=== PATIENT | female | born 1935 | race Caucasian/White ===

== ENCOUNTER 2018-09-02 09:23 | Observation (INO) | payer OTHER, BC ==
[2018-09-02] MEDS ORDERED: BISACODYL 10 MG RECTAL SUPP ONE (10:20)
[2018-09-02] MEDS ORDERED: NA CHLORIDE 0.9% 1,000 ML ONE (10:20)
[2018-09-02 10:21] LABS: Absolute Lymphocytes (CBC) 2.4 K/uL (0.7-4.9); Absolute Neutrophil 6.2 K/uL (1.8-8.0); Basophils % 0.9 % (0-1.3); Eosinophils % 2.1 % (0-4.4); Hematocrit 37.9 % (36.0-45.0); Lymphocytes % 24.5 % (15.3-44.8); MCH 32.1 pg (27.0-35.0); MCV 93.4 fL (80-100); MPV 8.2 fL (7.6-11.3); Monocytes % 9.7 % (3.3-12.3); RBC Red Blood Cell Count 4.06 M/uL (3.86-4.86)
[2018-09-02] MEDS ORDERED: LACTULOSE 20 GM/30 ML UCUP ONE ×2 (10:21→10:58)
[2018-09-02 10:40] LABS: ALT/SGPT 24 U/L (12-78); AST/SGOT 28 U/L (15-37); Albumin 3.9 g/dL (3.4-5.0); Alkaline Phosphatase 59 U/L (45-117); BUN Blood Urea Nitrogen 24 mg/dL (7-18); Bicarbonate 28 mmol/L (21-32); Bilirubin Direct 0.2 mg/dL (0-0.2); Bilirubin Total 0.7 mg/dL (0.2-1.0); Glucose Level 124 mg/dL (74-106); Lipase 295 U/L (73-393); Magnesium 2.6 mg/dL (1.8-2.4); Potassium 3.8 mmol/L (3.5-5.1); Protein, Total 8.5 g/dL (6.4-8.2); Sodium Level 136 mmol/L (136-145); Troponin (Emerg Dept Use Only) < 0.02 ng/mL (0.0-0.045)
--- NOTE | 2018-09-02 10:41 | RAD REPORT ---
EXAM DESCRIPTION: RAD - Chest Single View - 09/02/2018 10:29 am CLINICAL HISTORY: Abdominal pain, abdominal distention COMPARISON: October 2010 TECHNIQUE: AP portable chest image was obtained 1023 hours . FINDINGS: No peripheral mass, consolidation failure. Lung volumes are low compared to the prior stud y. Baseline interstitial prominence is not felt to be significantly different. Diaphragmatic eventrat ion is present. Heart and vasculature are normal. No measurable pleural effusion and no pneumothorax. No gross bony abnormality seen. No acute aortic findings suspected. IMPRESSION: No acute cardiopulmonary process. No significant changes from the comparison study noted.
[2018-09-02] MEDS ORDERED: ONDANSETRON 4 MG/2 ML VIAL ONE ×2 (11:46→16:38)
[2018-09-02] MEDS ORDERED: FENTANYL CITR 100 MCG/2 ML ONE (11:46)
--- NOTE | 2018-09-02 12:16 | EKG ---
Test Date: 2018-09-02 Test Time: 10:22:06 Psychiatric Aide Instructor: ANGELICA MEASUREMENT RESULTS: Intervals: Rate: 87 CA: 182 QRSD: 88 QT: 366 QTc: 440 Platina: P: 48 CA: 182 QRS: -21 T: 61 INTERPRETIVE STATEMENTS: Normal sinus rhythm Moderate voltage criteria for LVH, may be normal variant Borderline ECG Compared to ECG 10/18/2010 08:54:05 No significant changes Electronically Signed On 09-02-18 12:15:25 CDT by Justino Iglesias
--- NOTE | 2018-09-02 12:30 | RAD REPORT ---
EXAM DESCRIPTION: CT - Abdomen Pelvis W Contrast - 09/02/2018 12:07 pm CLINICAL HISTORY: Abdominal pain, constipation, abdominal distention, prior hysterectomy and cholecy stectomy COMPARISON: None. TECHNIQUE: Biphasic, helical CT imaging of the abdomen and pelvis was performed following 100 ml non -ionic IV contrast. Oral contrast was given. All CT scans are performed using dose optimization technique as appropriate and may include automated exposure control or mA/KV adjustment according to patient size. FINDINGS: No suspicious findings in the lung bases. No pericardial thickening or effusion. Liver and spleen show no suspicious parenchymal findings. Pancreatic volume loss is evident. No pancr eatic mass seen. No peripancreatic inflammatory stranding. Gallbladder is absent. Biliary tree is dil ated. This extends into the central intrahepatic biliary radicles. No duct stone or mass identified. Duct stones can be occult. Dilatation may simply reflect the reservoir effect that can occur after a cholecystectomy. Renal function is symmetric. No hydronephrosis. No suspicious renal parenchymal process. No pyeloneph ritis. An 8 millimeter nonobstructing calcification is seen central right kidney. No urinary bladder abnormality. No gastric dilatation or gastric wall thickening. No small bowel dilatation. Patient has a fatty ileo cecal valve. Appendix is not clearly defined. No appendicitis findings. Cecum is low lying along the anterior right pelvic floor. There is a mixture of contrast and stool in the cecum. An acute cecum pr ocess is unlikely. Evam-pc-riyyrdiu stool volume present from ascending colon through the sigmoid col on. There is mild sigmoid diverticulosis. Patient has a large amount of stool dilating the rectum to almost 7 cm. There is prominent perianal soft tissue. Perianal mass is not excluded. This could repre sent hemorrhoids. Pelvic floor prolapse or laxity is present. Uterus is absent. Ovaries are absent or atrophic. No free air, free fluid or inflammatory stranding. No hernia, mass or bulky lymphadenopathy. No adr enal abnormality. Advanced disc and bony degenerative changes are present. IMPRESSION: Large stool volume dilating the rectum to nearly 7 cm. Prominent perianal soft tissues likely represent enlarged hemorrhoids. Perianal mass is not excluded. Pelvic floor laxity or prolapse. Sigmoid diverticulosis without diverticulitis. Moderate stool volume elsewhere in the colon. Biliary tree is dilated. No duct stone or mass seen. This may simply be the reservoir effect that can occur after a cholecystectomy.
[2018-09-02] MEDS ORDERED: FLEET ENEMA ADULT PR ONE (12:56)
[2018-09-02] MEDS ORDERED: LIDOCAINE VISCOUS 2% SOLN 15 ML UDC ONE ×3 (14:29→16:55)
--- NOTE | 2018-09-02 14:58 | EDPHYS ---
Physician Documentation [facility] Name: Isa Hawkins Age: 83 yrs Sex: Female : 1935 Arrival Date: 09/02/2018 Time: 09:29 Bed 5 Private MD: ED Physician Puma Lee HPI: 09/02 09:54 This 83 yrs old Female presents to ER via Ambulatory with complaints of lianne Constipation, Hemorrhoids. 09:54 The patient presents with abdominal pain abdominal distention in the lower abdomen. lianne Onset: The symptoms/episode began/occurred 2 week(s) ago. The symptoms do not radiate. Associated signs and symptoms: none. The symptoms are described as constant, crampy. Modifying factors: The symptoms are alleviated by nothing, the symptoms are aggravated by movement, pressure, walking. Severity of pain: At its worst the pain was moderate in the emergency department the pain is unchanged. The patient has experienced similar episodes in the past, multiple times. Historical: - Allergies: 09:46 No Known Allergies; ph - Home Meds: 10:23 methotrexate sodium 2.5 mg Oral tab 6 tabs once wkly [Active]; ph losartan-hydrochlorothiazide 100-12.5 mg oral tab 1 tab once daily [Active]; amlodipine 5 mg tab 1 tab once daily [Active]; folic acid 800 mcg Oral tab 3 tab once daily [Active]; Vitamin B-12 500 mcg Oral tab daily [Active]; Fish Oil oral oral daily [Active]; acetaminophen-codeine 300-30 mg Oral tab as needed [Active]; calcium carbonate 600 mg (1,500 mg) Oral tab daily [Active]; - PMHx: 09:46 Rheumatoid Arthritis; ph - PSHx: 09:46 Knee surgery; Cholecystectomy; Hysterectomy; Carpal Tunnel Repair; ph - Immunization history:: Adult Immunizations unknown. - Social history:: Smoking status: Patient/guardian denies using tobacco. - Ebola Screening: : No symptoms or risks identified at this time. - Family history:: not pertinent. ROS: 09:54 Constitutional: Negative for fever, chills, and weight loss, Eyes: Negative for injury, lianne pain, redness, and discharge, ENT: Negative for injury, pain, and discharge, Neck: Negative for injury, pain, and swelling, Cardiovascular: Negative for chest pain, palpitations, and edema, Respiratory: Negative for shortness of breath, cough, wheezing, and pleuritic chest pain, Back: Negative for injury and pain, : Negative for injury, bleeding, discharge, and swelling, MS/Extremity: Negative for injury and deformity, Skin: Negative for injury, rash, and discoloration, Neuro: Negative for headache, weakness, numbness, tingling, and seizure, Psych: Negative for depression, anxiety, suicide ideation, homicidal ideation, and hallucinations, Allergy/Immunology: Negative for hives, rash, and allergies, Endocrine: Negative for neck swelling, polydipsia, polyuria, polyphagia, and marked weight changes, Hematologic/Lymphatic: Negative for swollen nodes, abnormal bleeding, and unusual bruising. 09:54 Abdomen/GI: Positive for abdominal pain, constipation, abdominal cramps, abdominal distension, of the right lower quadrant and left lower quadrant. Exam: 09:54 Constitutional: This is a well developed, well nourished patient who is awake, alert, lianne and in no acute distress. Head/Face: Normocephalic, atraumatic. Eyes: Pupils equal round and reactive to light, extra-ocular motions intact. Lids and lashes normal. Conjunctiva and sclera are non-icteric and not injected. Cornea within normal limits. Periorbital areas with no swelling, redness, or edema. ENT: Nares patent. No nasal discharge, no septal abnormalities noted. Tympanic membranes are normal and external auditory canals are clear. Oropharynx with no redness, swelling, or masses, exudates, or evidence of obstruction, uvula midline. Mucous membranes moist. Neck: Trachea midline, no thyromegaly or masses palpated, and no cervical lymphadenopathy. Supple, full range of motion without nuchal rigidity, or vertebral point tenderness. No Meningismus. Chest/axilla: Normal chest wall appearance and motion. Nontender with no deformity. No lesions are appreciated. Cardiovascular: Regular rate and rhythm with a normal S1 and S2. No gallops, murmurs, or rubs. Normal PMI, no JVD. No pulse deficits. Respiratory: Lungs have equal breath sounds bilaterally, clear to auscultation and percussion. No rales, rhonchi or wheezes noted. No increased work of breathing, no retractions or nasal flaring. Back: No spinal tenderness. No costovertebral tenderness. Full range of motion. Female : Normal external genitalia. Skin: Warm, dry with normal turgor. Normal color with no rashes, no lesions, and no evidence of cellulitis. MS/ Extremity: Pulses equal, no cyanosis. Neurovascular intact. Full, normal range of motion. Neuro: Awake and alert, GCS 15, oriented to person, place, time, and situation. Cranial nerves II-XII grossly intact. Motor strength 5/5 in all extremities. Sensory grossly intact. Cerebellar exam normal. Normal gait. Psych: Awake, alert, with orientation to person, place and time. Behavior, mood, and affect are within normal limits. 09:54 Abdomen/GI: Inspection: distension, Bowel sounds: active, Palpation: mild abdominal tenderness, in the right lower quadrant and left lower quadrant, Rectal exam: tenderness, that is mild, fecal impaction, that is moderate, Liver: no appreciated palpable abnormalities, Hernia: not appreciated. Vital Signs: 09:42 BP 124 / 59; Pulse 91; Resp 16; Temp 98.3; Pulse Ox 96% on R/A; Weight 58.97 kg; Height ph 5 ft. 0 in. (152.40 cm); Pain 10/10; 11:00 BP 134 / 66; Pulse 84; Resp 18; Pulse Ox 99% on R/A; ph 12:30 BP 127 / 74; Pulse 87; Resp 16; Pulse Ox 98% on R/A; ph 13:30 BP 136 / 72; Pulse 84; Resp 16; Pulse Ox 97% on R/A; ph 14:30 BP 117 / 68; Pulse 86; Resp 16; Pulse Ox 98% on R/A; ph 16:05 BP 116 / 62; Pulse 88; Resp 18; Temp 98.1; Pulse Ox 97% ; ph 09:42 Body Mass Index 25.39 (58.97 kg, 152.40 cm) ph Procedures: 10:49 Peripheral line: by aseptic technique a peripheral line was placed in the left external lianne jugular vein. MDM: 09:33 Patient medically screened. [facility] 09:56 Data reviewed: vital signs, nurses notes, lab test result(s), EKG, radiologic studies, [facility] CT scan, plain films. 09/02 09:53 Order name: Basic Metabolic Panel; Complete Time: 10:46 lianne 09/02 09:53 Order name: CBC with Diff; Complete Time: 10:46 [facility] 09/02 09:53 Order name: LFT's; Complete Time: 10:46 [facility] 09/02 09:53 Order name: Magnesium; Complete Time: 10:46 [facility] 09/02 09:53 Order name: Troponin (emerg Dept Use Only); Complete Time: 10:46 [facility] 09/02 09:53 Order name: Lipase; Complete Time: 10:46 [facility] 09/02 09:53 Order name: Urine Culture [facility] 09/02 15:06 Order name: Basic Metabolic Panel EDMS 09/02 15:06 Order name: Basic Metabolic Panel EDMS 09/02 15:06 Order name: CBC with Automated Diff EDMS 09/02 15:06 Order name: CBC with Automated Diff EDMS 09/02 15:06 Order name: Lipase EDMS 09/02 15:06 Order name: Lipase EDMS 09/02 15:06 Order name: Liver (Hepatic) Function EDIL 09/02 09:53 Order name: XRAY Chest (1 view); Complete Time: 10:46 [facility] 09/02 09:53 Order name: CT Abd/Pelvis - W/Contrast: gastrograffin; Complete Time: 12:41 [facility] 09/02 15:06 Order name: Liver (Hepatic) Function EDIL 09/02 09:53 Order name: EKG; Complete Time: 09:54 [facility] 09/02 09:53 Order name: Cardiac monitoring; Complete Time: 09:58 [facility] 09/02 09:53 Order name: EKG - Nurse/Tech; Complete Time: 11:17 [facility] 09/02 09:53 Order name: IV Saline Lock; Complete Time: 09:58 [facility] 09/02 09:53 Order name: Labs collected and sent; Complete Time: 11:17 [facility] 09/02 09:53 Order name: O2 Per Protocol; Complete Time: 09:58 [facility] 09/02 09:53 Order name: O2 Sat Monitoring; Complete Time: 09:58 [facility] 09/02 15:06 Order name: CONS Physician Consult EDIL 09/02 15:06 Order name: NPO EDMS Administered Medications: 10:30 Drug: Dulcolax Suppository 10 mg Route: WV; ph 12:00 Follow up: Response: No adverse reaction ph 10:50 Drug: NS 0.9% 1000 ml Route: IV; Rate: 1 bolus; Site: left jugular; ph 12:00 Follow up: Response: No adverse reaction; IV Status: Completed infusion ph 11:00 Drug: Lactulose 60 grams Volume: 45 ml; Route: PO; ph 12:00 Follow up: Response: No adverse reaction ph 11:57 Drug: fentaNYL (PF) 25 mcg Route: IVP; Site: left jugular; ph 12:30 Follow up: Response: No adverse reaction ph 11:57 Drug: Zofran 4 mg Route: IVP; Site: left wrist; ph 17:33 Follow up: Response: No adverse reaction ph 13:39 Drug: Fleet Enema 133 ml Route: WV; ph 14:00 Follow up: Response: No adverse reaction ph 15:19 Drug: Lactulose 30 grams Volume: 45 ml; Route: PO; ph 16:00 Follow up: Response: No adverse reaction ph 15:19 Drug: Cipro 400 mg Volume: 200 ml; Route: IVPB; Infused Over: 60 mins; Site: left ph jugular; 16:30 Follow up: Response: No adverse reaction; IV Status: Completed infusion ph 15:20 Drug: NS 0.9% 1000 ml Route: IV; Rate: 125 ml/hr; Site: left wrist; ph 16:30 Follow up: Response: No adverse reaction; IV Status: Infusion continued upon admission ph 15:50 Drug: Flagyl 500 mg Volume: 100 ml; Route: IVPB; Rate: 200 ml/hr; Infused Over: 30 ph mins; Site: left jugular; 16:30 Follow up: Response: No adverse reaction; IV Status: Completed infusion ph 16:45 Drug: Zofran 4 mg Route: IVP; Site: left jugular; ph 17:00 Follow up: Response: No adverse reaction ph 16:50 Drug: Viscous Lidocaine Liquid (4 %) 5 ml Route: Mucous Membrane; ph 17:00 Follow up: Response: No adverse reaction ph 17:09 Not Given (Patient Refused): Fleet Bisacodyl Enema (10 mg/30mL) 10 mg WV once ph 17:36 Not Given (Other Intervention Used): fentaNYL (PF) 25 mcg IVP once ph Disposition: 09/02/18 14:57 Hospitalization ordered by Juan Willams for Observation. Preliminary diagnosis are Abdominal tenderness, Constipation. - Bed requested for Telemetry/MedSurg (observation). - Status is Observation. ph - Condition is Stable. - Problem is new. - Symptoms have improved. UTI on Admission? No Signatures: Dispatcher [employer] EDMS Nissa Cervantes Puma Johnson MD MD cha Hall, Patricia RN RN ph Corrections: (The following items were deleted from the chart) 13:30 13:26 Physician consultation: Iron Morocho MD was called at 13:15, and will see [facility] patient in office, ct, load with keppra. [facility] 15:56 14:57 Hospitalization Ordered by Juan Willams MD for Observation. Preliminary diagnosis bd is Abdominal tenderness; Constipation. Bed requested for Telemetry/MedSurg (observation). Status is Observation. Condition is Stable. Problem is new. Symptoms have improved. UTI on Admission? No. [facility] 17:19 15:56 09/02/2018 14:57 Hospitalization Ordered by Juan Willams MD for Observation. ph Preliminary diagnosis is Abdominal tenderness; Constipation. Bed requested for Telemetry/MedSurg (observation). Status is Observation. Condition is Stable. Problem is new. Symptoms have improved. UTI on Admission? No. bd
--- NOTE | 2018-09-02 14:58 | ER ---
Nurse's Notes [facility] Name: Isa Hawkins Age: 83 yrs Sex: Female : 1935 Arrival Date: 09/02/2018 Time: 09:29 Bed 5 Private MD: Diagnosis: Abdominal tenderness;Constipation Presentation: 09/02 09:39 Presenting complaint: Patient states: " I think I'm impacted, I take pain medication ph for my RA and I have trouble w/ constipation but I haven't had a bowel movement in about a week and my hemorrhoids are really hurting." Pt reports that she has tried stool softeners and milk of magnesia at home, denies N/V or abdominal pain. Transition of care: patient was not received from another setting of care. Onset of symptoms was September 02, 2018. Risk Assessment: Do you want to hurt yourself or someone else? Patient reports no desire to harm self or others. Initial Sepsis Screen: Does the patient meet any 2 criteria? No. Patient's initial sepsis screen is negative. Does the patient have a suspected source of infection? No. Patient's initial sepsis screen is negative. Care prior to arrival: None. 09:39 Method Of Arrival: Ambulatory ph 09:39 Acuity: [place] 3 ph Historical: - Allergies: :46 No Known Allergies; ph - Home Meds: 10:23 methotrexate sodium 2.5 mg Oral tab 6 tabs once wkly [Active]; ph losartan-hydrochlorothiazide 100-12.5 mg oral tab 1 tab once daily [Active]; amlodipine 5 mg tab 1 tab once daily [Active]; folic acid 800 mcg Oral tab 3 tab once daily [Active]; Vitamin B-12 500 mcg Oral tab daily [Active]; Fish Oil oral oral daily [Active]; acetaminophen-codeine 300-30 mg Oral tab as needed [Active]; calcium carbonate 600 mg (1,500 mg) Oral tab daily [Active]; - PMHx: :46 Rheumatoid Arthritis; ph - PSHx: :46 Knee surgery; Cholecystectomy; Hysterectomy; Carpal Tunnel Repair; ph - Immunization history:: Adult Immunizations unknown. - Social history:: Smoking status: Patient/guardian denies using tobacco. - Ebola Screening: : No symptoms or risks identified at this time. - Family history:: not pertinent. Screenin:46 Abuse screen: Denies threats or abuse. Denies injuries from another. Nutritional ph screening: No deficits noted. Tuberculosis screening: No symptoms or risk factors identified. Fall Risk None identified. Assessment: 09:47 General: Appears in no apparent distress. comfortable, well groomed, Behavior is calm, ph cooperative, appropriate for age. Pain: Complains of pain in anus. Neuro: Level of Consciousness is awake, alert, obeys commands, Oriented to person, place, time, situation. Cardiovascular: Capillary refill < 3 seconds Patient's skin is warm and dry. Respiratory: Airway is patent Respiratory effort is even, unlabored, Respiratory pattern is regular, symmetrical. GI: Abdomen is round non-distended, Bowel sounds present X 4 quads. Abd is soft X 4 quads Reports constipation, hemorrhoids, Patient currently denies abdominal pain, nausea, vomiting. : No signs and/or symptoms were reported regarding the genitourinary system. Derm: Skin is intact, is healthy with good turgor, Skin is pink, warm \\T\\ dry. Musculoskeletal: Circulation, motion, and sensation intact. Range of motion: intact in all extremities. 12:30 Reassessment: Patient appears in no apparent distress at this time. Patient and/or ph family updated on plan of care and expected duration. Pain level reassessed. Patient is alert, oriented x 3, equal unlabored respirations, skin warm/dry/pink. Pt up to bedside commode, small amount of stool noted on toilet paper but no bowel movement. 13:39 Reassessment: Patient appears in no apparent distress at this time. Patient and/or ph family updated on plan of care and expected duration. Pain level reassessed. Patient is alert, oriented x 3, equal unlabored respirations, skin warm/dry/pink. Enema administered per ERP order, pt up to bedside commode approx 30 seconds of receiving enema, small amount of liquid stool noted. 14:46 Reassessment: linens changed after assisting Dr. Lee with digital disimpaction. Pt ss reported moderate discomfort during procedure. Visc Lidocaine used for comfort. Small amount of stool retrieved. Pt briefly sat on bedside commode to attempt to have additional BM with no results. Pt is now laying in bed resting comfortably. Warm blanket given, call light remains within reach. 15:30 Reassessment: Patient appears in no apparent distress at this time. Patient and/or ph family updated on plan of care and expected duration. Pain level reassessed. Patient is alert, oriented x 3, equal unlabored respirations, skin warm/dry/pink. Pt up to bedside commode, small amount of stool noted in multiple pieces of toilet paper in bedside commode, pt states, "I have to have toilet paper to get it out past hemorrhoids." Assisted pt in cleaning self, placed in fresh gown and fresh linen to bed, awaiting room assignment. 16:30 Reassessment: Patient appears in no apparent distress at this time. Patient and/or ph family updated on plan of care and expected duration. Pain level reassessed. Patient is alert, oriented x 3, equal unlabored respirations, skin warm/dry/pink. Pt c/o nausea and rectal pain, ERP notified, see MAR. 16:48 Reassessment: Report called to Kamryn METCALF. ph 16:55 Reassessment: Patient appears in no apparent distress at this time. Pt cleaned of stool ph and placed into clean gown and brief, waiting to be taken to inpatient room. Vital Signs: 09:42 BP 124 / 59; Pulse 91; Resp 16; Temp 98.3; Pulse Ox 96% on R/A; Weight 58.97 kg; Height ph 5 ft. 0 in. (152.40 cm); Pain 10/10; 11:00 BP 134 / 66; Pulse 84; Resp 18; Pulse Ox 99% on R/A; ph 12:30 BP 127 / 74; Pulse 87; Resp 16; Pulse Ox 98% on R/A; ph 13:30 BP 136 / 72; Pulse 84; Resp 16; Pulse Ox 97% on R/A; ph 14:30 BP 117 / 68; Pulse 86; Resp 16; Pulse Ox 98% on R/A; ph 16:05 BP 116 / 62; Pulse 88; Resp 18; Temp 98.1; Pulse Ox 97% ; ph 09:42 Body Mass Index 25.39 (58.97 kg, 152.40 cm) ph ED Course: 09:29 Patient arrived in ED. mr 09:33 Puma Lee MD is Attending Physician. lianne 09:39 Shelly Millan, DIXON is Primary Nurse. ph 09:42 Triage completed. ph 09:43 Arm band placed on. ph 09:47 Patient has correct armband on for positive identification. Bed in low position. Call ph light in reach. Side rails up X 1. Pulse ox on. NIBP on. Warm blanket given. 10:25 Initial lab(s) drawn, by me, sent to lab. Missed attempt(s): 22 gauge in right ph antecubital area. Bleeding controlled, band aid applied, catheter tip intact. 10:30 XRAY Chest (1 view) In Process Unspecified. EDMS 10:30 X-ray completed. Portable x-ray completed in exam room. Patient tolerated procedure ls3 well. 10:30 EKG done, by veterinary technician. reviewed by Puma Lee MD. at1 10:40 Missed attempt(s): 20 gauge in left antecubital area. 22 gauge in left forearm. aj Bleeding controlled, band aid applied, catheter tip intact. 10:55 Inserted saline lock: 18 gauge in left EJ, using aseptic technique. Inserted by Puma Lee MD. 11:24 No provider procedures requiring assistance completed. ph 11:[address] via wheelchair. [id number] 12:07 CT Abd/Pelvis - W/Contrast: gastrograffin In Process Unspecified. EDMS 14:54 Juan Willams MD is Hospitalizing Provider. lianne 17:18 Patient admitted, IV remains in place. ph Administered Medications: 10:30 Drug: Dulcolax Suppository 10 mg Route: PA; ph 12:00 Follow up: Response: No adverse reaction ph 10:50 Drug: NS 0.9% 1000 ml Route: IV; Rate: 1 bolus; Site: left jugular; ph 12:00 Follow up: Response: No adverse reaction; IV Status: Completed infusion ph 11:00 Drug: Lactulose 60 grams Volume: 45 ml; Route: PO; ph 12:00 Follow up: Response: No adverse reaction ph 11:57 Drug: fentaNYL (PF) 25 mcg Route: IVP; Site: left jugular; ph 12:30 Follow up: Response: No adverse reaction ph 11:57 Drug: Zofran 4 mg Route: IVP; Site: left wrist; ph 17:33 Follow up: Response: No adverse reaction ph 13:39 Drug: Fleet Enema 133 ml Route: PA; ph 14:00 Follow up: Response: No adverse reaction ph 15:19 Drug: Lactulose 30 grams Volume: 45 ml; Route: PO; ph 16:00 Follow up: Response: No adverse reaction ph 15:19 Drug: Cipro 400 mg Volume: 200 ml; Route: IVPB; Infused Over: 60 mins; Site: left ph jugular; 16:30 Follow up: Response: No adverse reaction; IV Status: Completed infusion ph 15:20 Drug: NS 0.9% 1000 ml Route: IV; Rate: 125 ml/hr; Site: left wrist; ph 16:30 Follow up: Response: No adverse reaction; IV Status: Infusion continued upon admission ph 15:50 Drug: Flagyl 500 mg Volume: 100 ml; Route: IVPB; Rate: 200 ml/hr; Infused Over: 30 ph mins; Site: left jugular; 16:30 Follow up: Response: No adverse reaction; IV Status: Completed infusion ph 16:45 Drug: Zofran 4 mg Route: IVP; Site: left jugular; ph 17:00 Follow up: Response: No adverse reaction ph 16:50 Drug: Viscous Lidocaine Liquid (4 %) 5 ml Route: Mucous Membrane; ph 17:00 Follow up: Response: No adverse reaction ph 17:09 Not Given (Patient Refused): Fleet Bisacodyl Enema (10 mg/30mL) 10 mg PA once ph 17:36 Not Given (Other Intervention Used): fentaNYL (PF) 25 mcg IVP once ph Outcome: 14:57 Decision to Hospital[facility] 17:18 Admitted to Med/surg accompanied by tech, via wheelchair, room 205, with chart, Report ph called to DIXON Harry 17:18 Condition: stable 17:19 Patient left the ED. ph Signatures: Dispatcher [employer] EDAnitha Frazier RN Puma Costa MD MD cha Rivera, Haleigh mr Leisa Parisi RN RN ss Gonzales, Amanda, negative restorer EKG Tat1 Shelly Millan RN RN ph Garcia, Jessica j6 Jostin Oliver ls3 Corrections: (The following items were deleted from the chart) 11:27 11:25 BP 134 / 66; Pulse 84bpm; Resp 18bpm; Pulse Ox 99% RA; ph ph
[2018-09-02] MEDS ORDERED: ACETAMINOPHEN 500 MG TAB PO PRN (15:00)
[2018-09-02] MEDS ORDERED: FENTANYL CITR 100 MCG/2 ML IV PRN (15:03)
[2018-09-02] MEDS ORDERED: BISACODYL 10 MG RECTAL SUPP PR PRN (15:04)
[2018-09-02] MEDS ORDERED: METRONIDAZOLE 500mg IVPB 500 MG/100 ML BAG IV ONE (15:06)
[2018-09-02] MEDS ORDERED: CIPROFLOXACIN 400mg IV 400 MG/200 ML BAG IV ONE (15:06)
[2018-09-02] MEDS: LACTULOSE 20 GM/30 ML UCUP PO SCH ×2 (16:00→21:52)
[2018-09-02] MEDS: METRONIDAZOLE 500mg IVPB 500 MG/100 ML BAG IV SCH (18:00)
[2018-09-02] MEDS: NA CHLORIDE 0.9% 1,000 ML IV SCH (18:56)
[2018-09-02] MEDS: ONDANSETRON 4 MG/2 ML VIAL IV PRN (18:57)
[2018-09-02] MEDS: Ciprofloxacin 200mg IV 200 MG/100 ML IV.SOLN. IV SCH (21:52)
[2018-09-02] MEDS: FAMOTIDINE 20 MG/2 ML VIAL IV SCH (22:11)
[2018-09-03] MEDS: METRONIDAZOLE 500mg IVPB 500 MG/100 ML BAG IV SCH ×5 (00:46→23:09)
--- NOTE | 2018-09-03 04:22 | HP ---
Date of Admission: 09/02/2018 Chief Complaint: Constipation and abdominal pain. History Of Present Illness: This is an 83-year-old female patient, who sees Dr. Topete as her pain m anagement physician as well as her primary care provider and also sees Dr. Parsons, senior art director. The patient has chronic arthritis problem due to rheumatoid arthritis as well as osteoarthritis and s he is on medications per her senior art director and Dr. Topete and she is also on chronic narcotic pain m edication which is hydrocodone. She has some chronic constipation problem, for which she takes over- the-counter medication and reports that she usually has bowel movement about every 2 days or so. She came into emergency room today with constipation problem. After she was evaluated in the emergency room, she was noted to have significant amount of constipation involving her colon and digital disimp action was done in the ER by ER provider and enema was given and the patient started to have a bowel movement, but she still has significant amount of stool collected in her colon and I was contacted by ER physician requesting admission to the hospital. I saw her this evening. Her son was present wit h her at bedside. She denies any fever, chills, nausea, vomiting. She has some lower abdominal disc omfort with this constipation problem. Allergies: NO KNOWN ALLERGIES. Medications: List reviewed that includes methotrexate, losartan/HCT, amlodipine, folic acid, vitamin B12, fish oil, hydrocodone. Review of Systems: GI: As mentioned above. Musculoskeletal: As mentioned above. All other systems reviewed and negative. Past Medical History: Significant for hypertension, rheumatoid arthritis, osteoarthritis, chronic co nstipation. Past Surgical History: Bilateral carpal tunnel release, bilateral knee replacement, hysterectomy, an d cholecystectomy. Family History: Sister had dementia. Social History: Negative for smoking and alcohol use. The patient has prior history of smoking, but quit many years ago. Physical Examination: Vital Signs: When she came into the emergency room, blood pressure 124/59, pulse 91, respiratory rat e 16, temperature 98.3, pulse ox 96%. Weight 58.97 kg, height 5 feet. General: Awake, alert, oriented, not in distress. HEENT: Head atraumatic, normocephalic. Conjunctivae nonerythematous. Sclerae white. Mouth, no thr ush or edema noted. Ears/Nose, no mass, lesion, discharge noted. Neck: Supple. No JVD, lymph nodes, bruit, thyromegaly noted. Lungs: Bilateral good equal air entry. Clear to auscultation. No rhonchi. No rales. Heart: Normal heart sounds, no murmur or gallop. Abdomen: Soft, bowel sounds normal. No guarding, rigidity, tenderness, mass, hepatosplenomegaly, dis tention, or bruit noted. Extremities: No leg edema. No calf tenderness. Skin: No rash, ulcer, cellulitis. Lymphatics: No lymph node enlargement in neck, supraclavicular, infraclavicular region. Neuro: No focal neurological deficit. Chest: Unremarkable. External Genitalia: Deferred. Rectal: Deferred. Laboratory Data: The patient's chest x-ray no acute cardiopulmonary changes. CAT scan of abdomen an d pelvis with contrast done in emergency room shows large stool volume dilating the rectum to nearly 7 cm, prominent perianal soft tissue likely representing enlarged hemorrhoid, pelvic floor laxity or prolapse, sigmoid diverticulosis without diverticulitis, moderate stool volume elsewhere in the colon , advanced and bony degenerative changes present. Electrocardiogram, normal sinus rhythm, moderate v oltage criteria for left ventricular hypertrophy. White count 9.9, hemoglobin 13, platelets 233. So dium 136, potassium 3.8, chloride 100, bicarb 28, BUN 24, creatinine 1.20, glucose 124. Liver functi on tests unremarkable. Lipase 295. Impression: 1.Constipation. 2.Rheumatoid arthritis. 3.Osteoarthritis. 4.Diverticulosis. 5.Hypertension. Plan: Admit the patient to hospital for further evaluation and management of this problem. The ana ent is appropriate for observation. GI consultation was requested from Dr. Hernandez. Tap water enem a was ordered, we will continue that. Keep her n.p.o. right now. Give her empiric antibiotic which is Cipro and metronidazole. Pain medication was ordered and I will see her tomorrow for followup. I did talk to patient and her son about importance of her discussing about this chronic pain managemen t therapy, which is her hydrocodone and unfortunately any such pain medication will cause chronic con stipation problem that she has, but at the same time, if she is not able to wean off such pain medica tion, which would be the most ideal thing to do and if she is not able to do that, then she will need to sit down and talk to her physician regarding constipation medication including medication like Carlos Enrique morantiashley. I will see her tomorrow for followup. GLENNY/KARLA Voice ID: [id number]
[2018-09-03 05:13] LABS: Absolute Lymphocytes (CBC) 1.7 K/uL (0.7-4.9); Absolute Neutrophil 10.9 K/uL (1.8-8.0); Basophils % 1.1 % (0-1.3); Hematocrit 35.3 % (36.0-45.0); Lymphocytes % 12.6 % (15.3-44.8); MCH 32.4 pg (27.0-35.0); MCV 94.1 fL (80-100); MPV 8.5 fL (7.6-11.3); Monocytes % 7.1 % (3.3-12.3); RBC Red Blood Cell Count 3.75 M/uL (3.86-4.86)
[2018-09-03] MEDS: LACTULOSE 20 GM/30 ML UCUP PO SCH ×4 (05:24→22:00)
[2018-09-03 05:26] LABS: Albumin 3.4 g/dL (3.4-5.0); Bilirubin Direct 0.2 mg/dL (0-0.2); Bilirubin Total 0.6 mg/dL (0.2-1.0); Potassium 3.3 mmol/L (3.5-5.1); Protein, Total 7.6 g/dL (6.4-8.2)
[2018-09-03] MEDS: ONDANSETRON 4 MG/2 ML VIAL IV PRN (05:32)
[2018-09-03] MEDS: NA CHLORIDE 0.9% 1,000 ML IV SCH ×4 (06:14→16:00)
[2018-09-03] MEDS ORDERED: POTASSIUM 25 MEQ EFFERV TAB ONE (07:30)
[2018-09-03] MEDS: Ciprofloxacin 200mg IV 200 MG/100 ML IV.SOLN. IV SCH ×2 (10:36→21:27)
[2018-09-03] MEDS: FAMOTIDINE 20 MG/2 ML VIAL IV SCH ×2 (10:36→21:28)
[2018-09-03] MEDS ORDERED: ALPRAZOLAM 0.25 MG TABLET PO PRN (20:59)
--- NOTE | 2018-09-03 23:29 | PN ---
Date of Progress Note: 09/03/2018 Subjective: The patient was seen this morning for followup. She had multiple bowel movements throug hout the night. Still has some lower abdominal pain. No nausea, no vomiting. Objective: Vital Signs: Reviewed. HEENT: Unremarkable. Lungs: Clear to auscultation. Heart: Heart sounds normal. Abdomen: Soft. Bowel sounds normal. No guarding, rigidity, distention. Presence of mild tendernes s in lower abdomen. No rebound tenderness, unchanged from yesterday. Extremities: No leg edema. Laboratory Data: White count has gone up to 13.8 today, hemoglobin 12.2, platelets 216. Sodium 139, potassium 3.3, chloride 104, bicarb 25, BUN 19, creatinine 1.20, glucose 147. Liver function tests unremarkable. Lipase 107. Impression: 1.Constipation. 2.Rheumatoid arthritis. 3.Hypertension. 4.Osteoarthritis. Plan: We were concerned about the patient having infection considering she is on Cipro and metronida zole and white count has gone up. She has significant constipation problem that she presented with. There is a possibility of transmigration of bacteria into the colon wall because of this bad constip ation problem, so that is why we already have her on empiric antibiotics, we will continue that. She does not appear septic at all. Abdomen is soft. No peritoneal signs. We will start her on clear l iquid diet and we will repeat blood work tomorrow. If her WBC count is better tomorrow, our plan is to discharge her to go home tomorrow. Details were discussed with the patient and her son who was at be dside. GLENNY/MODL Voice ID: [id number] Report ID: [id number]
[2018-09-04] MEDS: NA CHLORIDE 0.9% 1,000 ML IV SCH ×4 (01:01→16:35)
[2018-09-04] MEDS: LACTULOSE 20 GM/30 ML UCUP PO SCH ×3 (04:00→16:00)
[2018-09-04 05:29] LABS: Absolute Lymphocytes (CBC) 3.1 K/uL (0.7-4.9); Absolute Monocytes 1.4 K/uL (0.1-1.3); Absolute Neutrophil 7.6 K/uL (1.8-8.0); Basophils % 0.5 % (0-1.3); Eosinophils % 1.4 % (0-4.4); Hematocrit 35.1 % (36.0-45.0); Lymphocytes % 25.4 % (15.3-44.8); MCH 32.4 pg (27.0-35.0); MCV 93.3 fL (80-100); MPV 8.2 fL (7.6-11.3); Monocytes % 11.2 % (3.3-12.3); RBC Red Blood Cell Count 3.76 M/uL (3.86-4.86)
[2018-09-04] MEDS: METRONIDAZOLE 500mg IVPB 500 MG/100 ML BAG IV SCH ×3 (05:44→17:29)
[2018-09-04 05:58] LABS: Magnesium 2.3 mg/dL (1.8-2.4)
[2018-09-04 06:00] LABS: Potassium 2.9 mmol/L (3.5-5.1)
[2018-09-04] MEDS: KCL 20 MEQ/100 mL IVPB 20 MEQ/100 ML BAG IV SCH ×3 (06:53→13:26)
[2018-09-04] MEDS: FAMOTIDINE 20 MG/2 ML VIAL IV SCH (09:37)
[2018-09-04] MEDS: Ciprofloxacin 200mg IV 200 MG/100 ML IV.SOLN. IV SCH (09:37)
[2018-09-04] MEDS ORDERED: POTASSIUM CL SA 10 MEQ TAB PO ONE (19:11)
--- NOTE | 2018-09-07 08:34 | DS ---
Date of Discharge: 09/04/2018 Disposition: Discharged to go home. Physical Examination: HEENT: Unremarkable. LUNGS: Clear to auscultation. HEART: Sounds normal. ABDOMEN: Soft. Bowel sounds normal. No guarding, rigidity, tenderness, or distention. EXTREMITIES: No leg edema. Discharge Medication Instruction: Continue all prior home medications. 1.Take Senokot-S 2 tablets by mouth 2 times a day and take MiraLAX 17 g powder mixed with 8 ounces o f water 2 times a day. 2.Take Cipro 500 mg twice a day for 1 week and metronidazole 500 mg p.o. 3 times a day for 1 week. 3.Take potassium chloride 10 mEq p.o. twice a day for 3 days. Followup: 1.Follow up with Dr. Topete and Dr. Hernandez next week. 2.The patient to have Dr. Topete order blood tests for monitoring of potassium level. Hospital Course: An 83-year-old female patient who has chronic pain due to osteoarthritis and rheuma toid arthritis, sees a administrative aide, Dr. Parsons, for her arthritis problem and she sees Dr. Topete for pain management as well as her primary care provider. The patient takes chronic narcotic pain m edication per Dr. Topete and has chronic constipation problem and she came into emergency room with t he constipation problem along with abdominal pain. Please see dictated H and P for more information. After she was evaluated, she was admitted to the hospital under my service when ER physician percy arnold, requesting admission to the hospital. She had digital disimpaction done in the emergency room a nd then subsequently her constipation was treated. While she was in the hospital, GI consultation wa s obtained from Dr. Hernandez and he believes on his examination, the patient probably has rectocele. He is going to do outpatient colonoscopy as he is planning and then he will decide if she needs a re ferral to see colorectal surgeon or not. In any case, her constipation was treated during this hospi talization. Her white count had gone up; when she came in, it was normal; day after admission, it wa s 13,000. She received Cipro and metronidazole from the time of admission and we did not change any antibiotics and on the day of discharge, white count came down to 12,000. Her abdominal pain/discomf ort/problem has resolved. Overall, she feels better and I did talk to her about ongoing management o f constipation problem with her physician and also talked to her that if possible she should not use any narcotic pain medication, but if she cannot do without narcotic pain medication, then she should definitely try to get her constipation problem under good control. She will communicate all these de tails with her physician. Final Diagnoses: 1.Constipation. 2.Rheumatoid arthritis. 3.Osteoarthritis, multiple sites. 4.Diverticulosis. 5.Hypertension. 6.Hypokalemia. GLENNY/MODL Voice ID: [id number] Report ID: [id number]
== END 2018-09-04 20:41 | disposition home or self-care (01) ==
LOC: ER 09:23 → ERHOLD 14:59 → 2ND 16:49
PROVIDERS: ADMIT Internal Medicine; ATTEND Internal Medicine
DX: K59.00 Constipation, unspecified (principal); M06.9 Rheumatoid arthritis, unspecified; M19.90 Unspecified osteoarthritis, unspecified site; I10 Essential (primary) hypertension; E87.6 Hypokalemia; K57.90 Diverticulosis of intestine, part unspecified, without perforation or abscess without bleeding; Z96.653 Presence of artificial knee joint, bilateral
CPT/HCPCS: 36415 ×2; 71045; 74177; 80048 ×3; 80076 ×2; 83690 ×2; 83735 ×2; 84132; 84484; 85025 ×3; 93005; 96361; 96365; 96368; 96375; 99285; G0378 ×2; J0744 ×5; J2405 ×4; J3010 ×2; J7030 ×6; Q9967

== ENCOUNTER 2023-04-16 09:27 | Inpatient (IN) | payer OTHER, BC ==
--- OUTSIDE RECORDS SUMMARY | 2023-04-16 09:30 | XMS REPORT | Continuity of Care Document ---
:1935 Author Organization [facility] t Address [address] [place] [id number] Care Team Providers Name Role Phone ZANDRA_Rodrigo Attending Clinician Unavailable ZANDRA_F Admitting Clinician Unavailable Payers Payer Name Policy Type Policy Number Effective Date Expiration Date S ource [place]: [id number] 2000 [employer] 00:00:00 [place] [id number] 2015 [place] (MEDICARE 00:00:00 SUPPLEMENT) Problems Condition Condition Condition Status Onset Resolution Last Treating Co mments Source Name Details Category Date Date Treatment Clinician Date Hypokalemi Hypokalemi Problem Active S [facility] a a 4-20 [facility] 00:[facility]: ty [facility] Hyponatrem Hyponatrem Problem Active S weeny ia ia 4-18 Communi 00:00: ty 00 [facility] Allergies, Adverse Reactions, Alerts This patient has no known allergies or adverse reactions. Social History Smoking Status Start Date Stop Date Source Former Smoker [facility] Medications Ordered Filled Start Stop Current Ordering Indication Dosage Frequency Signature Comments Components Source Medication Medication Date Date Medication? Clinician (SIG) Name Name amlodipine amlodipine No amlodipine [place] 10 mg 10 mg 10 mg Communi tablet TAKE tablet TAKE tablet ty 1 TABLET BY 1 TABLET BY TAKE 1 Hospita MOUTH EVERY MOUTH EVERY TABLET BY l DAY DAY MOUTH Clinics EVERY DAY famotidine famotidine No famotidine [place] 40 mg 40 mg 40 mg Communi tablet TAKE tablet TAKE tablet ty 1 TABLET BY 1 TABLET BY TAKE 1 Hospita MOUTH EVERY MOUTH EVERY TABLET BY l DAY DAY MOUTH Clinics EVERY DAY furosemide furosemide No furosemide [place] 20 mg 20 mg 20 mg Communi tablet TAKE tablet TAKE tablet ty 1 TABLET BY 1 TABLET BY TAKE 1 Hospita MOUTH EVERY MOUTH EVERY TABLET BY l DAY DAY MOUTH Clinics EVERY DAY hydrocodone hydrocodone No hydrocodon [place] 10 10 e 10 Communi mg-acetamin mg-acetamin mg-acetami ty ophen 325 ophen 325 nophen 325 Hospita mg tablet mg tablet mg tablet l TAKE 1 TAKE 1 TAKE 1 Clinics TABLET BY TABLET BY TABLET BY MOUTH EVERY MOUTH EVERY MOUTH 4 HOURS 4 HOURS EVERY 4 NEEDED NEEDED HOURS NEEDED losartan losartan No losartan Swe jenna 100 100 100 Communi mg-hydrochl mg-hydrochl mg-hydroch ty orothiazide orothiazide lorothiazi Hospita 25 mg 25 mg de 25 mg l tablet TAKE tablet TAKE tablet Clinics 1 TABLET BY 1 TABLET BY TAKE 1 MOUTH EVERY MOUTH EVERY TABLET BY DAY DAY MOUTH EVERY DAY methotrexat methotrexat No methotrexa [place] e sodium e sodium te sodium Co mmuni 2.5 mg 2.5 mg 2.5 mg ty tablet TAKE tablet TAKE tablet Hospita 5 TABLETS 5 TABLETS TAKE 5 l BY MOUTH BY MOUTH TABLETS BY Shoaib brown EVERY WEEK EVERY WEEK MOUTH EVERY WEEK omeprazole omeprazole No omeprazole [place] 40 mg 40 mg 40 mg Communi capsule,del capsule,del capsule,de ty ayed ayed layed Hospita release release release l TAKE 1 TAKE 1 TAKE 1 Clinics CAPSULE BY CAPSULE BY CAPSULE BY MOUTH EVERY MOUTH EVERY MOUTH DAY DAY EVERY DAY pregabalin pregabalin No pregabalin [place] 25 mg 25 mg 25 mg Communi capsule capsule capsule ty TAKE 1 TAKE 1 TAKE 1 Hospita CAPSULE BY CAPSULE BY CAPSULE BY l MOUTH TWICE MOUTH TWICE MOUTH Clinics A DAY A DAY TWICE A DAY amlodipine amlodipine No amlodipine [place] 10 mg 10 mg 10 mg Communi tablet TAKE tablet TAKE tablet ty 1 TABLET BY 1 TABLET BY TAKE 1 Hospita MOUTH EVERY MOUTH EVERY TABLET BY l DAY DAY MOUTH Clinics EVERY DAY famotidine famotidine No famotidine [place] 40 mg 40 mg 40 mg Communi tablet TAKE tablet TAKE tablet ty 1 TABLET BY 1 TABLET BY TAKE 1 Hospita MOUTH EVERY MOUTH EVERY TABLET BY l DAY DAY MOUTH Clinics EVERY DAY hydrocodone hydrocodone No hydrocodon [place] 10 10 e 10 Communi mg-acetamin mg-acetamin mg-acetami ty ophen 325 ophen 325 nophen 325 Hospita mg tablet mg tablet mg tablet l TAKE 1 TAKE 1 TAKE 1 Clinics TABLET BY TABLET BY TABLET BY MOUTH EVERY MOUTH EVERY MOUTH 4 HOURS 4 HOURS EVERY 4 NEEDED NEEDED HOURS NEEDED losartan losartan No losartan Swe jenna 100 100 100 Communi mg-hydrochl mg-hydrochl mg-hydroch ty orothiazide orothiazide lorothiazi Hospita 25 mg 25 mg de 25 mg l tablet TAKE tablet TAKE tablet Clinics 1 TABLET BY 1 TABLET BY TAKE 1 MOUTH EVERY MOUTH EVERY TABLET BY DAY DAY MOUTH EVERY DAY meclizine meclizine No meclizine [place] 12.5 mg 12.5 mg 12.5 mg Commun i tablet TAKE tablet TAKE tablet ty 1 TABLET BY 1 TABLET BY TAKE 1 Hospita MOUTH EVERY MOUTH EVERY TABLET BY l 6 HOURS FOR 6 HOURS FOR MOUTH Clinics 5 DAYS 5 DAYS EVERY 6 HOURS FOR 5 DAYS methotrexat methotrexat No methotrexa [place] e sodium e sodium te sodium Co mmuni 2.5 mg 2.5 mg 2.5 mg ty tablet TAKE tablet TAKE tablet Hospita 5 TABLETS 5 TABLETS TAKE 5 l BY MOUTH BY MOUTH TABLETS BY C kevin EVERY WEEK EVERY WEEK MOUTH EVERY WEEK omeprazole omeprazole No omeprazole [place] 40 mg 40 mg 40 mg Communi capsule,del capsule,del capsule,de ty ayed ayed layed Hospita release release release l TAKE 1 TAKE 1 TAKE 1 Clinics CAPSULE BY CAPSULE BY CAPSULE BY MOUTH EVERY MOUTH EVERY MOUTH DAY DAY EVERY DAY pregabalin pregabalin No pregabalin [place] 25 mg 25 mg 25 mg Communi capsule capsule capsule ty TAKE 1 TAKE 1 TAKE 1 Hospita CAPSULE BY CAPSULE BY CAPSULE BY l MOUTH TWICE MOUTH TWICE MOUTH Clinics A DAY A DAY TWICE A DAY spironolact spironolact No spironolac [place] one 25 mg one 25 mg tone 25 mg Communi tablet TAKE tablet TAKE tablet ty 1 TABLET BY 1 TABLET BY TAKE 1 Hospita MOUTH EVERY MOUTH EVERY TABLET BY l DAY FOR 14 DAY FOR 14 MOUTH Cl inics DAYS DAYS EVERY DAY FOR 14 DAYS Vital Signs Vital Name Observation Time Observation Value Comments Source BP Diastolic 2023-04-02 00:00:00 58 mm[Hg] [facility] BP Systolic 2023-04-02 00:00:00 130 mm[Hg] [facility] Body Weight 2023-04-02 00:00:00 2030.4 [oz_av] [facility] BP Diastolic 2023-03-18 00:00:00 60 mm[Hg] [facility] BP Systolic 2023-03-18 00:00:00 115 mm[Hg] [facility] Body Weight 2023-03-18 00:00:00 2052.8 [oz_av] [facility] Procedures Procedure Date / Time Performing Clinician Source Performed Carpal Tunnel Surgery 1996-12-01 00:00:00 [facility] Total Replacement of 1994-12-01 00:00:00 [facility] Left Knee Joint [facility] Total Hysterectomy 1977-12-01 00:00:00 [facility] Total Replacement of [facility] Right Hip Joint [facility] Plan of Care Planned Activity Planned Date Details Comments Source Diagnostic Test 2023-04-02 BMP, serum or plasma [facility] Pending 00:00:00 [code = BMP, serum [facility] or plasma] Diagnostic Test 2023-04-02 urinalysis complete, [facility] Pending 00:00:00 reflex culture [code Hospita Clinics = urinalysis complete, reflex culture] Future Scheduled Test Continue to take [facility] medications as Hospital Clin ics driected. Improved sodium and potassium. [code = Continue to take medications as driected. 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 2023-03-20 2023-03-20 Outpatient BRADEN_F [facility] 2022 [place] 00:00:00 00:00:00 0503 Commun i ty Hospita l Clinics 2023-03-18 2023-03-18 Outpatient BRADEN_F [facility] 2022 [place] 00:00:00 00:00:00 0418 Commun i ty Hospita l Clinics 2023-03-18 2023-03-18 Outpatient ZANDRA_F [facility] 2022 [place] 00:00:00 00:00:00 0420 [facility] i ty Hospita l Clinics 2023-03-18 2023[facility]03-18 [facility] [place] 00:00:00 00:00:00 [facility] 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 [address] Clinic [facility] [address], CLINIC, [place], [place] [id number] , Ph. Results This patient has no known results.
--- NOTE | 2023-04-16 10:03 | RAD REPORT ---
EXAM DESCRIPTION: RAD - Chest Pa And Lat (2 Views) - 04/16/2023 9:50 am CLINICAL HISTORY: COUGH Chest pain. COMPARISON: Chest Single View dated 09/02/2018; CHEST PA AND LAT 2 VIEW dated 10/18/2010 FINDINGS: The lungs are mildly emphysematous. There is a small opacity in the right posterior gutter with trace pleural fluid which is probably small area of developing pneumonia. The heart is moderate ly enlarged.
[2023-04-16] MEDS ORDERED: predniSONE 20 MG TAB ONE (10:33)
[2023-04-16] MEDS ORDERED: METHYLPREDNISOLONE 125 MG INJ ONE (10:33)
[2023-04-16] MEDS ORDERED: MAGNESIUM SULFATE 1 gm IVPB 1 GM/100 ML BAG IV ONE (10:34)
[2023-04-16] MEDS ORDERED: FAMOTIDINE 20 MG/2 ML VIAL IV ONE (10:34)
[2023-04-16] MEDS ORDERED: NA CHLORIDE 0.9% 1,000 ML ONE (10:35)
[2023-04-16] MEDS ORDERED: ALBUTEROL 2.5 MG/3 ML NEB SOL ONE ×2 (10:36→14:10)
[2023-04-16] MEDS ORDERED: IPRATROPIUM BROM 0.5MG/2.5ML ONE ×2 (10:36→14:10)
--- NOTE | 2023-04-16 10:39 | EDPHYS ---
Physician Documentation [facility] Name: Isa Hawkins Age: 87 yrs Sex: Female : 1935 Arrival Date: 04/16/2023 Time: 09:27 Bed 16 Private MD: [facility] Physician Puma Lee HPI: 04/16 10:29 This 87 yrs old Female presents to ER via Ambulatory with complaints of Cold lianne Symptoms, Flu Symptoms. 10:29 The patient has shortness of breath at rest, with light activity. Onset: The lianne symptoms/episode began/occurred 3 day(s) ago. Duration: The symptoms are continuous, and are steadily getting worse. The patient's shortness of breath is aggravated by coughing, is alleviated by nothing. The patient presents to the emergency department with wheezing, Current therapy: None, that began without any particular precipitating event, the patient was reported to have chest congestion, productive cough, trouble breathing. Modifying factors: The symptoms are alleviated by nothing, the symptoms are aggravated by exertion. The patient or guardian reports cough, difficulty breathing, flu symptoms, arthralgias, low-grade fever, myalgias. Modifying factors: The symptoms are alleviated by elevating head, remaining still, the symptoms are aggravated by activity, lying flat. Severity of symptoms: At their worst the symptoms were moderate in the emergency department the symptoms are unchanged. The patient has experienced similar episodes in the past, multiple times. Historical: - Allergies: 09:41 No Known Allergies; iw - Home Meds: 13:19 methotrexate sodium 2.5 mg Oral tab 6 tabs once wkly [Active]; sg5 losartan-hydrochlorothiazide 100-12.5 mg Oral tab 1 tab once daily [Active]; amlodipine 10 mg oral tablet [Active]; Vitamin B-12 500 mcg Oral tab daily [Active]; folic acid 800 mcg Oral tab 3 tab once daily [Active]; acetaminophen-codeine 300-30 mg Oral tab as needed [Active]; famotidine 40 mg Oral tablet 1 tab daily [Active]; spironolactone 25 mg/5 mL Oral suspension daily [Active]; - PMHx: 09:41 Rheumatoid Arthritis; Hypertensive disorder; iw - Immunization history:: Client reports receiving the 2nd dose of the Covid vaccine. - Social history:: Smoking status: Patient/guardian denies using tobacco, but has a distant history of tobacco abuse. - Family history:: not pertinent. ROS: 10:29 Constitutional: Negative for fever, chills, and weight loss, Eyes: Negative for injury, lianne pain, redness, and discharge, ENT: Negative for injury, pain, and discharge, Neck: Negative for injury, pain, and swelling, Cardiovascular: Negative for chest pain, palpitations, and edema, Abdomen/GI: Negative for abdominal pain, nausea, vomiting, diarrhea, and constipation, Back: Negative for injury and pain, : Negative for injury, bleeding, discharge, and swelling, MS/Extremity: Negative for injury and deformity, Skin: Negative for injury, rash, and discoloration, Neuro: Negative for headache, weakness, numbness, tingling, and seizure, Psych: Negative for depression, anxiety, suicide ideation, homicidal ideation, and hallucinations, Allergy/Immunology: Negative for hives, rash, and allergies, Endocrine: Negative for neck swelling, polydipsia, polyuria, polyphagia, and marked weight changes, Hematologic/Lymphatic: Negative for swollen nodes, abnormal bleeding, and unusual bruising. 10:29 Respiratory: Positive for cough, dyspnea on exertion, shortness of breath, wheezing, inspiratory, expiratory. 10:29 MS/extremity: Negative for acute changes. Exam: 10:29 Constitutional: This is a well developed, well nourished patient who is awake, alert, lianne and in no acute distress. Head/Face: Normocephalic, atraumatic. Eyes: Pupils equal round and reactive to light, extra-ocular motions intact. Lids and lashes normal. Conjunctiva and sclera are non-icteric and not injected. Cornea within normal limits. Periorbital areas with no swelling, redness, or edema. ENT: Nares patent. No nasal discharge, no septal abnormalities noted. Tympanic membranes are normal and external auditory canals are clear. Oropharynx with no redness, swelling, or masses, exudates, or evidence of obstruction, uvula midline. Mucous membranes moist. Neck: Trachea midline, no thyromegaly or masses palpated, and no cervical lymphadenopathy. Supple, full range of motion without nuchal rigidity, or vertebral point tenderness. No Meningismus. Chest/axilla: Normal chest wall appearance and motion. Nontender with no deformity. No lesions are appreciated. Cardiovascular: Regular rate and rhythm with a normal S1 and S2. No gallops, murmurs, or rubs. Normal PMI, no JVD. No pulse deficits. Abdomen/GI: Soft, non-tender, with normal bowel sounds. No distension or tympany. No guarding or rebound. No evidence of tenderness throughout. Back: No spinal tenderness. No costovertebral tenderness. Full range of motion. Female : Normal external genitalia. Skin: Warm, dry with normal turgor. Normal color with no rashes, no lesions, and no evidence of cellulitis. MS/ Extremity: Pulses equal, no cyanosis. Neurovascular intact. Full, normal range of motion. Neuro: Awake and alert, GCS 15, oriented to person, place, time, and situation. Cranial nerves II-XII grossly intact. Motor strength 5/5 in all extremities. Sensory grossly intact. Cerebellar exam normal. Normal gait. Psych: Awake, alert, with orientation to person, place and time. Behavior, mood, and affect are within normal limits. 10:29 Respiratory: mild respiratory distress is noted, Respirations: labored breathing, that is mild, Breath sounds: bronchial sounds, decreased breath sounds, rhonchi, stridor, is not appreciated, + upper airway congestion. wheezing: inspiratory expiratory is heard diffusely. 11:20 ECG was reviewed by the Attending Physician. [facility] Vital Signs: 09:37 BP 133 / 66; Pulse 88; Resp 20; Temp 98.3(O); Pulse Ox 94% ; Weight 58.51 kg; Height 5 iw ft. 0 in. ; Pain 0/10; 11:25 BP 126 / 61; Pulse 92; Resp 20; Pulse Ox 97% on R/A; Pain 0/10; sg5 13:56 BP 101 / 44; Pulse 94; Resp 18; Pulse Ox 97% on R/A; Pain 0/10; sg5 09:37 Body Mass Index 25.19 (58.51 kg, 152.4 cm) iw 09:37 Pain Scale: Adult iw 11:25 Pain Scale: Adult sg5 13:56 Pain Scale: Adult sg5 MDM: 09:31 Patient medically screened. lianne 10:33 Differential diagnosis: Anemia Anxiety Reaction asthma, Bronchitis CHF exacerbation, lianne Chronic Obstructive Pulmonary Disease acute asthma, exercise-induced asthma, reactive airway, CHF, Myocardial Infarction pneumonia, Pneumothorax pulmonary edema, Pulmonary Embolism reactive airway disease, Sepsis Unstable Angina. Antibiotic administration: Rocephin and Zithromax given. Immunization status: Pneumococcal vaccine: within last 5 years. Influenza vaccine: Data reviewed: vital signs, nurses notes, lab test result(s), EKG, radiologic studies, plain films. Consideration of Admission/Observation Patient was admitted/placed on observation. Escalation of care including admission/observation considered. I considered the following discharge prescriptions or medication management in the emergency department Medications were administered in the Emergency Department. See MAR. Independent interpretation of the following test(s) in the Emergency Department EKG: See my EKG interpretation above. Test considered but Not performed: CT: no ct chest. Historians other than the Patient: Family Member: son informed. Care significantly affected by the following chronic conditions: Hypertension, Chronic Obstructive Pulmonary Disease, Obesity. Counseling: I had a detailed discussion with the patient and/or guardian regarding: the historical points, exam findings, and any diagnostic results supporting the discharge/admit diagnosis, lab results, radiology results, the need for further work-up and treatment in the hospital. 04/16 09:31 Order name: Flu; Complete Time: 11:08 [facility] 04/16 09:31 Order name: SARS RAPID [facility] 04/16 09:49 Order name: Basic Metabolic Panel; Complete Time: 11:33 [facility] 04/16 09:49 Order name: CBC with Diff; Complete Time: 11:08 [facility] 04/16 09:49 Order name: LFT's; Complete Time: 11:33 [facility] 04/16 09:49 Order name: Magnesium; Complete Time: 11:33 [facility] 04/16 09:49 Order name: NT PRO-BNP; Complete Time: 11:33 [facility] 04/16 09:49 Order name: PT-INR; Complete Time: 11:08 [facility] 04/16 09:49 Order name: Troponin HS; Complete Time: 11:33 [facility] 04/16 09:49 Order name: Blood Culture Adult (2) [facility] 04/16 09:49 Order name: Lactate w/ 2H reflex if indic.; Complete Time: 11:12 [facility] 04/16 10:11 Order name: SARS-COV-2 RT PCR; Complete Time: 11:08 bd 04/16 12:00 Order name: Magnesium EDMS 04/16 12:00 Order name: Phosphorus EDMS 04/16 12:00 Order name: T4 Free EDMS 04/16 12:00 Order name: Thyroid Stimulating Hormone [facility] 04/16 12:00 Order name: Urinalysis w/ reflexes [facility] 04/16 12:00 Order name: Basic Metabolic Panel [facility] 04/16 12:00 Order name: Basic Metabolic Panel [facility] 04/16 12:00 Order name: CBC with Automated Diff [facility] 04/16 12:00 Order name: CBC with Automated Diff [facility] 04/16 12:00 Order name: Lipid Profile [facility] 04/16 12:00 Order name: Lipid Profile [facility] 04/16 09:31 Order name: Chest Pa And Lat (2 Views) XRAY; Complete Time: 10:41 [facility] 04/16 11:34 Order name: Echo w/ Doppler [facility] 04/16 11:45 Order name: Thorax Wo Con [facility] 04/16 09:49 Order name: EKG; Complete Time: 09:49 [facility] 04/16 12:00 Order name: Heart Healthy [facility] 04/16 09:49 Order name: Cardiac monitoring; Complete Time: 11:08 [facility] 04/16 09:49 Order name: EKG - Nurse/Tech; Complete Time: 11:08 [facility] 04/16 09:49 Order name: IV Saline Lock; Complete Time: 11:08 [facility] 04/16 09:49 Order name: Labs collected and sent; Complete Time: 11:08 [facility] 04/16 09:49 Order name: O2 Per Protocol; Complete Time: 11:25 [facility] 04/16 09:49 Order name: O2 Sat Monitoring; Complete Time: 11:08 [facility] EC:20 Rate is 89 beats/min. Rhythm is regular. QRS [place] is Normal. FL interval is normal. QRS lianne interval is normal. QT interval is normal. No Q waves. T waves are Normal. No ST changes noted. Clinical impression: NSR w/ Non-specific ST/T Changes and No evidence of ischemia. Interpreted by me. Reviewed by me. Administered Medications: 10:40 Drug: Lovenox Sub-Q 40 mg Route: Sub-Q; Site: left lower abdomen; sg5 10:49 Drug: NS 0.9% IV 1000 ml Route: IV; Rate: 125 ml/hr; Site: left forearm; sg5 10:49 Drug: MethylPrednisoLONE IVP 125 mg Route: IVP; Site: left forearm; sg5 10:49 Drug: predniSONE PO 60 mg Route: PO; sg5 10:49 Drug: Famotidine IVP 20 mg Route: IVP; Site: left forearm; sg5 10:49 Drug: Magnesium Sulfate IVPB 1 grams Route: IVPB; Infused Over: 1 hrs; Site: left sg5 forearm; 12:47 Follow up: IV Status: Completed infusion; IV Intake: 100ml sg5 10:53 Drug: DuoNeb Nebulize (2.5 mg - 0.5 mg) 3 ml Route: Nebulizer; sg5 11:25 Drug: Rocephin IV 1 grams Route: IV; Rate: per protocol; Site: left forearm; sg5 12:00 Follow up: Response: No adverse reaction; IV Status: Completed infusion; IV Intake: [id number] 12:49 Drug: Zithromax IVPB 500 mg Route: IVPB; Infused Over: 1 hrs; Site: left forearm; sg5 13:56 Follow up: IV Status: Completed infusion; IV Intake: 250ml sg5 13:11 Drug: Levalbuterol Inhalation 2.5 mg Route: Inhalation; sg5 Disposition Summary: 04/16/23 10:38 Hospitalization Ordered Hospitalization Status: Inpatient Admission lianne Provider: Federico Pina cha Location: Telemetry/MedSurg (Inpatient) lianne Condition: Fair lianne Problem: new lianne Symptoms: have improved lianne Bed/Room Type: Standard lianne Room Assignment: 204(04/16/23 13:13) dw Diagnosis - COPD/ Chronic obstructive pulmonary disease with (acute) exacerbation lianne - Pneumonia due to other specified bacteria lianne - Hypoxemia lianne - Cardiomegaly lianne Forms: - Medication Reconciliation Form lianne - SBAR form lianne Signatures: Dispatcher [employer] Shannan Grajeda RN RN dw Anderson, Corey, MD MD cha Williams, Irene, RN RN iw Galvan, Stephanie, RN RN sg5 Corrections: (The following items were deleted from the chart) 13:13 10:38 lianne dw
--- NOTE | 2023-04-16 10:39 | ER ---
Nurse's Notes [facility] Name: Isa Hawkins Age: 87 yrs Sex: Female : 1935 Arrival Date: 04/16/2023 Time: 09:27 Bed 16 Private MD: Diagnosis: COPD/ Chronic obstructive pulmonary disease with (acute) exacerbation;Pneumonia due to other specified bacteria;Hypoxemia;Cardiomegaly Presentation: 04/16 09:37 Chief complaint: Patient states: Cough, not feeling good and no appetite for about a iw week, not better. Phlegm, unsure of color. "I feel dry". Coronavirus screen: Vaccine status: Patient reports receiving the 2nd dose of the covid vaccine. Ebola Screen: Patient denies travel to an Ebola-affected area in the 21 days before illness onset. Initial Sepsis Screen: Does the patient meet any 2 criteria? No. Patient's initial sepsis screen is negative. Does the patient have a suspected source of infection? No. Patient's initial sepsis screen is negative. Risk Assessment: Do you want to hurt yourself or someone else? Patient reports no desire to harm self or others. Onset of symptoms was April 08, 2023. 09:37 Method Of Arrival: Ambulatory iw 09:37 Acuity: VALENTINA 3 iw Triage Assessment: 13:57 General: Behavior is calm, cooperative. sg5 Historical: - Allergies: 09:41 No Known Allergies; iw - Home Meds: 13:19 methotrexate sodium 2.5 mg Oral tab 6 tabs once wkly [Active]; sg5 losartan-hydrochlorothiazide 100-12.5 mg Oral tab 1 tab once daily [Active]; amlodipine 10 mg oral tablet [Active]; Vitamin B-12 500 mcg Oral tab daily [Active]; folic acid 800 mcg Oral tab 3 tab once daily [Active]; acetaminophen-codeine 300-30 mg Oral tab as needed [Active]; famotidine 40 mg Oral tablet 1 tab daily [Active]; spironolactone 25 mg/5 mL Oral suspension daily [Active]; - PMHx: 09:41 Rheumatoid Arthritis; Hypertensive disorder; iw - Immunization history:: Client reports receiving the 2nd dose of the Covid vaccine. - Social history:: Smoking status: Patient/guardian denies using tobacco, but has a distant history of tobacco abuse. - Family history:: not pertinent. Screenin:21 [facility] ED Fall Risk Assessment (Adult) History of falling in the last 3 months, sg5 including since admission No falls in past 3 months (0 pts). Abuse screen: Denies threats or abuse. Nutritional screening: No deficits noted. Tuberculosis screening: No symptoms or risk factors identified. Assessment: 10:21 General: Appears in no apparent distress. comfortable, Reports cough and shortness of sg5 breath. Pain: Denies pain. Neuro: Level of Consciousness is awake, alert, obeys commands, Oriented to person, place, time, situation, Appropriate for age. Cardiovascular: Capillary refill < 3 seconds Patient's skin is warm and dry. Rhythm is regular. Respiratory: Airway is patent Respiratory effort is even, labored, Breath sounds with crackles bilaterally. Breath sounds with wheezes bilaterally. GI: Abdomen is round non-distended. : No signs and/or symptoms were reported regarding the genitourinary system. EENT: No signs and/or symptoms were reported regarding the EENT system. Derm: No signs and/or symptoms reported regarding the dermatologic system. Musculoskeletal: No signs and/or symptoms reported regarding the musculoskeletal system. 13:56 Reassessment: Patient appears in no apparent distress at this time. Patient and/or sg5 family updated on plan of care and expected duration. Pain level reassessed. Patient is alert, oriented x 3, equal unlabored respirations, skin warm/dry/pink. Patient states feeling better. Patient states symptoms have improved. 13:57 Reassessment: report given to nurse Sara. [email or web address] Vital Signs: 09:37 BP 133 / 66; Pulse 88; Resp 20; Temp 98.3(O); Pulse Ox 94% ; Weight 58.51 kg; Height 5 iw ft. 0 in. ; Pain 0/10; 11:25 BP 126 / 61; Pulse 92; Resp 20; Pulse Ox 97% on R/A; Pain 0/10; sg5 13:56 BP 101 / 44; Pulse 94; Resp 18; Pulse Ox 97% on R/A; Pain 0/10; sg5 09:37 Body Mass Index 25.19 (58.51 kg, 152.4 cm) iw 09:37 Pain Scale: Adult iw 11:25 Pain Scale: Adult sg5 13:56 Pain Scale: Adult sg5 ED Course: 09:28 Patient arrived in ED. am2 09:31 Puma Lee MD is Attending Physician. lianne 09:41 Triage completed. iw 09:43 Arm band placed on right wrist. iw 09:52 Chest Pa And Lat (2 Views) XRAY In Process Unspecified. EDMS 09:54 Ramya Bethea, RN is Primary Nurse. sg5 10:21 Placed in gown. Bed in low position. Call light in reach. Side rails up X 1. Adult w/ sg5 patient. Valuables Left with patient. 10:21 Inserted saline lock: 22 gauge in left antecubital area, using aseptic technique. sg5 ,using aseptic technique. difusex Blood collected. 10:37 Federico Pina MD is Hospitalizing Provider. lianne 11:58 Thorax Wo Con In Process Unspecified. EDMS 13:56 No provider procedures requiring assistance completed. Patient admitted, IV remains in sg5 place. Administered Medications: 10:40 Drug: Lovenox Sub-Q 40 mg Route: Sub-Q; Site: left lower abdomen; sg5 10:49 Drug: NS 0.9% IV 1000 ml Route: IV; Rate: 125 ml/hr; Site: left forearm; sg5 10:49 Drug: MethylPrednisoLONE IVP 125 mg Route: IVP; Site: left forearm; sg5 10:49 Drug: predniSONE PO 60 mg Route: PO; sg5 10:49 Drug: Famotidine IVP 20 mg Route: IVP; Site: left forearm; sg5 10:49 Drug: Magnesium Sulfate IVPB 1 grams Route: IVPB; Infused Over: 1 hrs; Site: left sg5 forearm; 12:47 Follow up: IV Status: Completed infusion; IV Intake: 100ml sg5 10:53 Drug: DuoNeb Nebulize (2.5 mg - 0.5 mg) 3 ml Route: Nebulizer; sg5 11:25 Drug: Rocephin IV 1 grams Route: IV; Rate: per protocol; Site: left forearm; sg5 12:00 Follow up: Response: No adverse reaction; IV Status: Completed infusion; IV Intake: [id number] 12:49 Drug: Zithromax IVPB 500 mg Route: IVPB; Infused Over: 1 hrs; Site: left forearm; sg5 13:56 Follow up: IV Status: Completed infusion; IV Intake: 250ml sg5 13:11 Drug: Levalbuterol Inhalation 2.5 mg Route: Inhalation; sg5 Medication: 10:21 VIS not applicable for this client. sg5 Intake: 12:00 IV: 50ml; Total: 50ml. sg5 12:47 IV: 100ml; Total: 150ml. sg5 13:56 IV: 250ml; Total: 400ml. sg5 Outcome: 10:38 Decision to Hospitalize by Provider. lianne 14:22 Admitted to Med/surg accompanied by tech, via wheelchair, room 204, with chart, Report sg5 called to Josey 14:22 Condition: stable 14:22 Instructed on the need for admit. 14:22 Patient left the ED. sg5 Signatures: Dispatcher [employer] EDPuma Lincoln MD MD cha Williams, Irene, RN RN Anitha Chavez Stephanie, RN RN sg5 Corrections: (The following items were deleted from the chart) 09:46 09:37 Pulse 88bpm; Resp 20bpm; Pulse Ox 94%; Temp 98.3F Oral; 58.51 kg; Height 5 ft. 0 iw in.; BMI: 25.1; Pain 0/10, Adult; iw
[2023-04-16 10:46] LABS: Absolute Lymphocytes (CBC) 1.2 K/uL (0.7-4.9); Hematocrit 31.8 % (36.0-45.0); Lymphocytes % 18.8 % (15.3-44.8); MCV 94.6 fL (80-100); MPV 8.5 fL (7.6-11.3); RBC Red Blood Cell Count 3.36 M/uL (3.86-4.86)
[2023-04-16 10:48] LABS: Protime INR 1.07
[2023-04-16 11:12] LABS: Albumin 3.4 g/dL (3.4-5.0); Bilirubin Direct 0.2 mg/dL (0-0.2); Bilirubin Indirect, Calculated 0.2 mg/dL (0.2-0.8); Bilirubin Total 0.4 mg/dL (0.2-1.0); Magnesium 1.9 mg/dL (1.6-2.4); Potassium 3.8 mEq/L (3.5-5.1); Protein, Total 7.4 g/dL (6.4-8.2); Troponin High Sensitivity 9.5 pg/mL (<58.9)
[2023-04-16] MEDS ORDERED: AZITHROMYCIN 500 MG INJ IVPB ONE (11:20)
[2023-04-16] MEDS ORDERED: CEFTRIAXONE 1000 MG/VIAL ONE (11:20)
[2023-04-16] MEDS ORDERED: NA CHLORIDE 0.9% 250 ML ONE (11:21)
[2023-04-16] MEDS ORDERED: ENOXAPARIN 40 MG/0.4 ML SQ ONE (11:21)
[2023-04-16] MEDS ORDERED: ACETAMINOPHEN 325 MG TABLET PO PRN (11:46)
[2023-04-16] MEDS ORDERED: ONDANSETRON 4 MG/2 ML VIAL IV PRN (11:56)
[2023-04-16] MEDS ORDERED: HYDRALAZINE HCL 20 MG/ML VIAL IV PRN (12:16)
--- NOTE | 2023-04-16 12:17 | P.HP ---
Certification for Inpatient Patient admitted to: Inpatient With expected LOS: >2 Midnights Patient will require the following post-hospital care: None Practitioner: I am a practitioner with admitting privileges, knowledge of patient current condition, hospital course, and medical plan of care. Services: Services provided to patient in accordance with Admission requirements found in Title 42 Section 412.3 of the Code of Federal Regulations Patient History Date of Service: 04/16/23 Reason for admission: Shortness of breath History of Present Illness: Patient is an the 87-year-old female with a past medical history significant for rheumatoid arthritis, hypertension who presents with complaint of shortness of breath and cough that has been ongoing for the past 1 week. Patient reported that she started experiencing cough initially before she developed shortness of breath.. Patient reported associated signs and symptoms of sore throat, rh inorrhea, headache, dizziness and poor appetite. Patient denies any other signs and symptoms. Symptoms are aggravated or relieved by nothing. Patient decided to present to the hospital due to worsening symptoms. Allergies No Known Allergies Allergy (Unverified 09/02/18 18:12) Home Medications: Amlodipine [Norvasc*] 1 tab PO DAILY 04/16/23 Famotidine 1 tab PO DAILY 04/16/23 Folic Acid/Vit B Complex and C [Dialyvite 800 Chewable Wafer] 1 tab PO DAILY 04/16/23 Hydrocodone Bit/Acetaminophen [[place] 10-325 Tablet] 1 tab PO PRN PRN 04/16/23 Losartan/Hydrochlorothiazide [Losartan-Hctz 100-25 mg Tab] 1 tab PO DAILY 04/16/23 Mecobalamin [B12 Active] 1 tab PO TID 04/16/23 Methotrexate [Methotrexate*] 5 tab PO SEECOM 04/16/23 Omeprazole 1 tab PO DAILY 04/16/23 Spironolactone [Aldactone] 1 tab PO DAILY 04/16/23 - Past Medical/Surgical History Diabetic: No -: Rheumatoid arthritis -: GERD -: Hypertension. -: Hysterectomy -: Ghassan Carpal Tunne -: Cholecystectomy -: Ghassan Knee Surgery - Social History Smoking Status: Never smoker Alcohol use: No CD- Drugs: No Caffeine use: Yes Place of Residence: Home Review of Systems General: Other (Poor appetite.) Eyes: Unremarkable ENT: Throat Pain, Other (Rhinorrhea) Respiratory: Cough, Shortness of Breath Cardiovascular: Unremarkable Gastrointestinal: Unremarkable Genitourinary: Unremarkable Musculoskeletal: Unremarkable Integumentary: Unremarkable Neurological: Other (Headache, dizziness) Lymphatics: Unremarkable Physical Examination - Physical Exam General: Alert, In no apparent distress, Oriented x3, Cooperative HEENT: Atraumatic, PERRLA, Mucous membr. moist/pink, EOMI, Sclerae nonicteric Neck: Supple, 2+ carotid pulse no bruit, No LAD, Without JVD or thyroid abnormality Respiratory: Diminished, Inspiratory wheezes Cardiovascular: No edema, Regular rate/rhythm, Normal S1 S2 Capillary refill: <2 Seconds Gastrointestinal: Normal bowel sounds, Soft and benign, No tenderness Musculoskeletal: No clubbing, No swelling, No contractures, No tenderness Integumentary: No rashes, No breakdown, No significant lesion Neurological: Normal speech, Normal tone, Normal affect Lymphatics: No axilla or inguinal lymphadenopathy - Studies Laboratory Data (last 24 hrs) 04/16/23 10:17: PT 11.8, INR 1.07 04/16/23 10:17: WBC 6.30, Hgb 10.7 L, Hct 31.8 L, Plt Count 123 L 04/16/23 10:17: Sodium 131 L, Potassium 3.8, BUN 14, Creatinine 0.95, Glucose 130 H, Magnesium 1.9, Total Bilirubin 0.4, AST 23, ALT 20, Alkaline Phosphatase 49 Microbiology Data (last 24 hrs): 04/16/23 10:06 Nasopharnyx Influenza Type A Antigen Screen - Final 04/16/23 10:06 Nasopharnyx Influenza Type B Antigen Screen - Final Assessment and Plan - Plan --Pneumonia. CT chest indicates Patchy left basilar airspace opacities as above, raise concern for pneumonia. Patient placed on antibiotics and neb treatment with albuterol \Atrovent. Continue O2 therapy. -- Rheumatoid arthritis. Continue home medications. -- History of constipation. Patient placed on milk of magnesia as needed --Hypertension. Poorly controlled. Continue home medications and hydralazine as needed -- Anemia of chronic disease. H&H stable. We will continue to monitor hemoglob in and transfuse if less than 7.0. --Headache. Tylenol as needed. --Elevated BNP. Chest x-ray indicates an enlarged heart. Echocardiogram pending to assess cardiac structures and functions. Continue supportive care. --GERD. Continue Protonix. --DVT prophylaxis with Lovenox subQ. Discharge Plan: Home Plan to discharge in: Greater than 2 days - Advance Directives Does patient have a Living Will: No Does patient have a Durable POA for Healthcare: No - Code Status/Comfort Care Code Status Assessed: Yes Physician Review: Patient Assessed, Agree with Above Assessment and Plan Critical Care: No
--- NOTE | 2023-04-16 13:06 | RAD REPORT ---
EXAM DESCRIPTION: CT - Thorax Wo Con - 04/16/2023 11:56 am CLINICAL HISTORY: SOB, R O Pneumonia COMPARISON: Abdomen Pelvis W Contrast dated 09/02/2018; Chest Pa And Lat (2 Views) dated 04/16/2023 TECHNIQUE: Axial thin cut images of the chest were obtained without IV contrast. Multiplanar reforma ts were generated and reviewed. All CT scans are performed using dose optimization technique as appropriate and may include automated exposure control or mA/KV adjustment according to patient size. FINDINGS: Patchy alveolar opacities in the posterior basal left lower lobe. Mild tree-in-bud opaciti es in the lower segments left upper lobe as well. No suspicious masses, although these findings could obscure small nodules. No pleural thickening or pleural effusion. No pneumothorax. No abnormal mediastinal or hilar masses or lymphadenopathy seen. No significant aortic or pulmonary a rtery findings. Assessment is limited in the absence of IV contrast. No chest wall mass or abnormal axillary lymphadenopathy. Evaluation of the solid abdominal structures again reveals sequelae of cholecystectomy. Prominent yesi iber of the common bile duct. IMPRESSION: Patchy left basilar airspace opacities as above, raise concern for pneumonia. Stable prominence of the common bile duct, could relate to post cholecystectomy status.
[2023-04-16] MEDS ORDERED: LEVALBUTEROL 1.25 MG/3 ML NEB ONE (13:17)
[2023-04-16] MEDS: ALBUTEROL 2.5 MG/3 ML NEB SOL NEB SCH ×3 (14:00→20:00)
[2023-04-16] MEDS: IPRATROPIUM BROM 0.5MG/2.5ML NEB SCH ×3 (14:00→20:00)
[2023-04-16 15:07] VITALS: BMI 25.2
[2023-04-16 18:10] LABS: Magnesium 2.2 mg/dL (1.6-2.4); Phosphorus 2.4 mg/dL (2.5-4.9)
[2023-04-16] MEDS: POTASS/SODIUM PHOSPHATE 1 PKT POWD.PACK PO SCH ×3 (19:56→21:50)
[2023-04-16] MEDS: HOME MED 1 EA UNK (Mecobalamin [B12 Active] 1,000 MCG Tab.Chew) PO SCH (20:02)
[2023-04-16] MEDS ORDERED: POTASS/SODIUM PHOSPHATE 1 PKT POWD.PACK PO SCH (21:00)
[2023-04-16] MEDS: HYDROCODONE/APAP 5/325 MG TAB PO PRN (21:51)
[2023-04-17] MEDS: IPRATROPIUM BROM 0.5MG/2.5ML NEB SCH ×4 (02:00→20:00)
[2023-04-17] MEDS: ALBUTEROL 2.5 MG/3 ML NEB SOL NEB SCH ×4 (02:00→20:00)
[2023-04-17 05:25] LABS: Potassium 3.9 mEq/L (3.5-5.1)
[2023-04-17] MEDS: HYDROCODONE/APAP 5/325 MG TAB PO PRN (06:29)
[2023-04-17] MEDS ORDERED: HYDROCODONE/APAP 5/325 MG TAB PO PRN (06:41)
[2023-04-17] MEDS: HYDROCODONE/APAP 10/325 TAB PO PRN ×2 (06:51→20:49)
[2023-04-17] MEDS ORDERED: HYDROCODONE/APAP 10/325 TAB ONE (06:55)
[2023-04-17] MEDS: HOME MED 1 EA UNK (Mecobalamin [B12 Active] 1,000 MCG Tab.Chew) PO SCH ×3 (09:00→20:41)
[2023-04-17] MEDS ORDERED: HOME MED 1 EA UNK (Omeprazole [Omeprazole] 20 MG Tablet.Dr) PO SCH (09:00)
[2023-04-17] MEDS ORDERED: AZITHROMYCIN IV 500 MG in NA CHLORIDE 0.9% 250 ML IVPB SCH (09:00)
[2023-04-17] MEDS: ENOXAPARIN 40 MG/0.4 ML SQ SCH (09:00)
[2023-04-17] MEDS ORDERED: LOSARTAN/HCTZ 50-12.5 PO SCH (09:00)
[2023-04-17] MEDS ORDERED: METHOTREXATE 2.5 MG TAB PO SCH (09:00)
--- NOTE | 2023-04-17 09:04 | P.DS ---
Admission Date: 04/16/23 Discharge Date: 04/17/23 Disposition: ROUTINE DISCHARGE Discharge Condition: GOOD Reason for Admission: Shortness of breath Vital Signs/Physical Exam: Temp Pulse Resp BP Pulse Ox 98.5 F 93 H 17 124/61 95 04/17/23 08:00 04/17/23 08:00 04/17/23 08:00 04/17/23 08:00 04/17/23 08:00 Laboratory Data at Discharge: WBC 6.30 thou/uL (4.3-10.9) 04/16/23 10:17 Hgb 10.7 g/dL (12.0-15.0) L 04/16/23 10:17 Hct 31.8 % (36.0-45.0) L 04/16/23 10:17 Plt Count 123 thou/uL (152-406) L 04/16/23 10:17 PT 11.8 SECONDS (9.5-12.5) 04/16/23 10:17 INR 1.07 04/16/23 10:17 Sodium 132 mEq/L (136-145) L 04/17/23 04:37 Potassium 3.9 mEq/L (3.5-5.1) 04/17/23 04:37 BUN 14 mg/dL (7-18) 04/17/23 04:37 Creatinine 0.93 mg/dL (0.55-1.02) 04/17/23 04:37 Glucose 153 mg/dL (74-106) H 04/17/23 04:37 Phosphorus 3.7 mg/dL (2.5-4.9) 04/17/23 04:37 Magnesium 2.2 mg/dL (1.6-2.4) 04/16/23 17:46 Total Bilirubin 0.4 mg/dL (0.2-1.0) 04/16/23 10:17 AST 23 U/L (15-37) 04/16/23 10:17 ALT 20 U/L (13-56) 04/16/23 10:17 Alkaline Phosphatase 49 U/L (45-117) 04/16/23 10:17 Home Medications: Amlodipine [Norvasc*] 1 tab PO DAILY 04/16/23 Famotidine 1 tab PO DAILY 04/16/23 Folic Acid/Vit B Complex and C [Dialyvite 800 Chewable Wafer] 1 tab PO DAILY 04/16/23 Hydrocodone Bit/Acetaminophen [[place] 10-325 Tablet] 1.5 tab PO Q3HP PRN 04/16/23 Losartan/Hydrochlorothiazide [Losartan-Hctz 100-25 mg Tab] 1 tab PO DAILY 04/16/23 Mecobalamin [B12 Active] 1 tab PO TID 04/16/23 Methotrexate [Methotrexate*] 5 tab PO SEECOM 04/16/23 Omeprazole 1 tab PO DAILY 04/16/23 Spironolactone [Aldactone] 1 tab PO DAILY 04/16/23 Aspirin Chewable [Aspirin Chewable*] 81 mg PO DAILY tab.chew 04/17/23 Cefdinir [Cefdinir*] 300 mg PO BID 7 Days #14 cap 04/17/23 Doxycycline Hyclate 100 mg PO BID 7 Days #14 tab 04/17/23 Hydrocodone 10/APAP 325 [[place] 10/325*] 1 tab PO BEDTIME 04/17/23 New Medications: Cefdinir [Cefdinir*] 300 mg PO BID 7 Days #14 cap Doxycycline Hyclate 100 mg PO BID 7 Days #14 tab Physician Discharge Instructions: 1. Please call and schedule a follow-up appointment with your PCP (Dr. Tee) in 3-5 days - Please have your PCP repeat your chest x-ray in 2-3 weeks to make sure your pneumonia has healed 2. Please call and schedule a follow-up appointment with Pulmonology (Dr. Muse) in 5-7 days Diet: AHA Activity: Ad nathaly Followup: Jone Muse MD [ACTIVE - CAN ADMIT] - Rony Tee MD [Primary Care Provider] -
[2023-04-17] MEDS: CEFTRIAXONE 1,000 MG in NA CHLORIDE 0.9% 50 ML IVPB SCH (10:03)
[2023-04-17] MEDS: AMLODIPINE 10 MG TAB PO SCH (10:04)
[2023-04-17] MEDS: ASPIRIN 81 MG CHEWABLE TABLET PO SCH (10:04)
[2023-04-17] MEDS: PANTOPRAZOLE 40MG TABLET PO SCH (10:05)
[2023-04-17] MEDS: SPIRONOLACTONE 25 MG TABLET PO SCH (10:05)
[2023-04-17] MEDS: MULTIVITAMINS,THERAPEUT 1 TAB PO SCH (10:08)
--- NOTE | 2023-04-17 10:18 | P.PN ---
Subjective Date of Service: 04/17/23 Chief Complaint: Shortness of breath No acute events overnight. She reports that her shortness of breath has improved. She denies any chest pain or palpitations. She states that she feels very well and would like to be discharged home. Plan was for discharge today; however, I was just notified that one of her blood cultures returned positive for gram-positive cocci in clusters. Her discharge has been cancelled. She was started on vancomycin and Infectious Diseases was consulted. Review of Systems 10-point ROS is otherwise unremarkable Physical Examination - Vital Signs Temperature: 98.5 F Blood Pressure: 124/61 Pulse: 93 Respirations: 17 Pulse Ox (%): 95 - Physical Exam General: Alert, In no apparent distress, Oriented x3 HEENT: Atraumatic, Mucous membr. moist/pink, Sclerae nonicteric Respiratory: Diminished (left-lung [place]), Rhonchi/gurgles (faint, left-sided) Cardiovascular: No edema, Regular rate/rhythm, Normal S1 S2, No gallops, No rubs, No murmurs Gastrointestinal: Normal bowel sounds, Soft and benign, Non-distended, No tenderness, No rebound, No guarding Musculoskeletal: No clubbing Integumentary: No rashes Neurological: Normal speech, Normal affect - Studies Laboratory Data (last 24 hrs) 04/16/23 10:17: PT 11.8, INR 1.07 04/16/23 10:17: WBC 6.30, Hgb 10.7 L, Hct 31.8 L, Plt Count 123 L 04/16/23 10:17: Sodium 131 L, Potassium 3.8, BUN 14, Creatinine 0.95, Glucose 130 H, Magnesium 1.9, Total Bilirubin 0.4, AST 23, ALT 20, Alkaline Phosphatase 49 Microbiology Data (last 24 hrs): 04/16/23 10:06 Nasopharnyx Influenza Type A Antigen Screen - Final 04/16/23 10:06 Nasopharnyx Influenza Type B Antigen Screen - Final Assessment And Plan - Plan # Left-Sided Community Acquired Pneumonia with possible Gram-Positive Bacteremia - Evaluation thus far: - Does not meet sepsis criteria - Procalcitonin = 0.07 - Blood cultures = 1/4 positive for gram-positive cocci in clusters - Chest x-ray = "the lungs are mildly emphysematous. There is a small opacity in the right posterior gutter with trace pleural fluid which is probably small area of developing pneumonia. The heart is moderately enlarged." - CT chest = "patchy left basilar airspace opacities as above, raise concern for pneumonia. Stable prominence of the common bile duct, could relate to post c holecystectomy status." - Management plan: - Consulted Infectious Diseases - recommendations appreciated - Continue ceftriaxone, discontinue azithromycin - Added vancomycin - Repeat blood cultures - Obtain transthoracic echocardiogram to evaluate for valvular vegetations - Consulted Respiratory Therapy - Supplemental oxygen to maintain SpO2 > 92% - Encouraged incentive spirometry # Hypertension # Mild Hyponatremia - possibly due to Hydrochlorothiazide - Continue home amlodipine, losartan, spironolactone - Hold home hydrochlorothiazide # Rheumatoid Arthritis - No evidence of acute flare - Hold home methotrexate while hospitalized - Continue home pain regimen: - Hydrocodone-Acetaminophen 10-325 mg PO qAM - Hydrocodone-Acetaminophen 15-650 PO qPM # Gastroesophageal Reflux Disease - Continue home pantoprazole Federico Pina M.D.
[2023-04-17] MEDS ORDERED: VANCOMYCIN 1.5 GM in NA CHLORIDE 0.9% 500 ML IVPB ONE (11:00)
[2023-04-17] MEDS: MAGNESIUM HYDROXIDE 8% 30 ML PO PRN ×2 (11:14→20:41)
--- NOTE | 2023-04-17 11:24 | EKG ---
Test Date: 2023-04-16 Test Time: 11:10:37 [employer]unch [employer] Operator Helper: GALILEO MEASUREMENT RESULTS: Intervals: Rate: 89 OK: 184 QRSD: 80 QT: 364 QTc: 442 [place]: P: 42 OK: 184 QRS: -26 T: 62 INTERPRETIVE STATEMENTS: Normal sinus rhythm Normal ECG Compared to ECG 09/02/2018 10:22:06 Left ventricular hypertrophy no longer present Electronically Signed On 04-17-23 11:20:27 CDT by Josh Keane
--- NOTE | 2023-04-17 11:40 | P.CNS ---
Date of Consult: 04/17/23 Chief Complaint: Shortness of breath History of Present Illness: Patient is an 87 yo female with a medical history of hypertension and rheumatoid arthritis who presented to the ED with complaints of shortness of breath and cough x 1 week. She reported associated symptoms of rhinorrhea, sore throat and headache at time of presentation. XR and CT of chest with concern for pneumonia. No leukocytosis or fever noted. Flu A&B negative. Covid negative. Blood cultures obtained growing gram positive cocci and ID was consulted. Patient is sitting in chair, in good spirits. Son at bedside. Allergies No Known Allergies Allergy (Unverified 09/02/18 18:12) Home medications list reviewed: Yes Home Medications: Amlodipine [Norvasc*] 1 tab PO DAILY 04/16/23 Famotidine 1 tab PO DAILY 04/16/23 Folic Acid/Vit B Complex and C [Dialyvite 800 Chewable Wafer] 1 tab PO DAILY 04/16/23 Hydrocodone Bit/Acetaminophen [[place] 10-325 Tablet] 1.5 tab PO Q3HP PRN 04/16/23 Losartan/Hydrochlorothiazide [Losartan-Hctz 100-25 mg Tab] 1 tab PO DAILY 04/16/23 Mecobalamin [B12 Active] 1 tab PO TID 04/16/23 Methotrexate [Methotrexate*] 5 tab PO SEECOM 04/16/23 Omeprazole 1 tab PO DAILY 04/16/23 Spironolactone [Aldactone] 1 tab PO DAILY 04/16/23 Aspirin Chewable [Aspirin Chewable*] 81 mg PO DAILY tab.chew 04/17/23 Cefdinir [Cefdinir*] 300 mg PO BID 7 Days #14 cap 04/17/23 Doxycycline Hyclate 100 mg PO BID 7 Days #14 tab 04/17/23 Hydrocodone 10/APAP 325 [[place] 10/325*] 1 tab PO BEDTIME 04/17/23 - Past Medical/Surgical History Diabetic: No -: Rheumatoid arthritis -: GERD -: Hypertension. -: Hysterectomy -: Ghassan Carpal Tunne -: Cholecystectomy -: Ghassan Knee Surgery - Social History Smoking Status: Former smoker Alcohol use: No CD- Drugs: No Caffeine use: Yes Place of Residence: Home Review of Systems 10-point ROS is otherwise unremarkable ENT: Other (mild sinus pressure) Gastrointestinal: Other (lack of appetite) Physical Examination Temp Pulse Resp BP Pulse Ox 98.5 F 93 H 17 124/61 95 04/17/23 10:31 04/17/23 10:31 04/17/23 10:31 04/17/23 10:31 04/17/23 10:31 General: Alert, In no apparent distress, Oriented x3 HEENT: Atraumatic, Normocephalic, PERRLA, Mucous membr. moist/pink Neck: Supple, JVD not distended Respiratory: Normal air movement, Diminished (left) Cardiovascular: No edema, Normal pulses Gastrointestinal: Normal bowel sounds, Soft and benign, Non-distended Musculoskeletal: No clubbing, No swelling Integumentary: No rashes, No breakdown Neurological: Normal gait, Normal speech, Normal strength at 5/5 x4 extr, Normal tone, Normal affect Laboratory Data - Reviewed Microbiology Data - Reviewed Imagings Data: - XR Chest 04/16: "The lungs are mildly emphysematous. There is a small opacity in the right posterior gutter with trace pleural fluid which is probably small area of developing pneumonia. The heart is moderately enlarged." - CT Chest 04/16: "Patchy alveolar opacities in the posterior basal left lower lobe. Mild tree-in-bud opacities in the lower segments left upper lobe as well. No suspicious masses, although these findings could obscure small nodules. No pleural thickening or pleural effusion. No pneumothorax." Conclusions/Impression: Problem List Rheumatoid Arthritis Hypertension GERD Anemia Hyponatremia Pneumonia, Community Acquired Pneumonia - Patient presented to ED with shortness of breath and cough x 1 week, sore throat, rhinorrhea and headache - CT Chest 04/16: "Patchy left basilar airspace opacities as above, raise concern for pneumonia." - Influenza A&B negative. Covid negative. - Started on Rocephin 04/17 Bacteremia - Blood cultures 04/16: Gram positive cocci in 1 out of 4 bottles - Repeat blood cultures 04/17: Pending - Started on Vancomycin 04/17 No leukocytosis Afebrile Recommendations Continue current antibiotics for now. Blood cultures obtained 04/16 with gram positive cocci in 1/4 bottles likely a contaminant, however awaiting repeat blood culture results for confirmation. ID will follow up and adjust antibiotics as appropriate. Case discussed with Joanna Gonzalez. Thank you Dr. Pina for consult.
[2023-04-17] MEDS ORDERED: MELATONIN 5 MG TABLET PO PRN (22:08)
[2023-04-18] MEDS: IPRATROPIUM BROM 0.5MG/2.5ML NEB SCH ×2 (02:00→08:39)
[2023-04-18] MEDS: ALBUTEROL 2.5 MG/3 ML NEB SOL NEB SCH ×2 (02:00→08:39)
[2023-04-18 04:16] LABS: Absolute Lymphocytes (CBC) 3.3 K/uL (0.7-4.9); Lymphocytes % 29.1 % (15.3-44.8); MCV 94.2 fL (80-100); MPV 8.1 fL (7.6-11.3)
[2023-04-18 04:33] LABS: Potassium 3.9 mEq/L (3.5-5.1)
--- NOTE | 2023-04-18 07:34 | ECHO ---
HEIGHT: 5 ft 0 in WEIGHT: 129 lb 0 oz DATE OF STUDY: 04/17/[address]: Federico Pina MD 2-DIMENSIONAL: YES M.MODE: YES DOPPLER: YES COLOR FLOW: YES TDS: NO PORTABLE: YES DEFINITY: NO BUBBLE STUDY: NO DIAGNOSIS: G+ BACTERMIA, EVAL FOR VEGEATATION CARDIAC HISTORY: CATHERIZATION: NO SURGERY: NO PROSTHETIC VALVE: NO PACEMAKER: NO MEASUREMENTS (cm) DIASTOLIC (NORMALS) SYSTOLIC (NORMALS) IVSd 0.9 (0.6-1.2) LA Diam 3.2 (1.9-4.0) LVEF 68% LVIDd 4.2 (3.5-5.7) LVIDs 2.6 (2.0-3.5) %FS 37% LVPWd 1.1 (0.6-1.2) Ao Diam 2.6 (2.0-3.7) 2 DIMENSIONAL ASSESSMENT: RIGHT ATRIUM: NORMAL LEFT ATRIUM: NORMAL RIGHT VENTRICLE: NORMAL LEFT VENTRICLE: NORMAL TRICUSPID VALVE: NORMAL MITRAL VALVE: NORMAL PULMONIC VALVE: NORMAL AORTIC VALVE: NORMAL PERICARDIAL EFFUSION: NONE AORTIC ROOT: NORMAL LEFT VENTRICULAR WALL MOTION: NORMAL. DOPPLER/COLOR FLOW: SEE BELOW. COMMENTS: NORMAL LEFT VENTRICULAR EJECTION FRACTION GREATER THAN 60% NORMAL WALL MOTION TRACE OF MITRAL REGURGITATION MILD TRICUSPID REGURGITATION NO CLEAR VEGETATION IS SEEN, ANNEL IS RECOMMENDED IF CLINICALLY INDICATED TECHNOLOGIST: NARGIS BENEDICT
[2023-04-18] MEDS: CEFTRIAXONE 1,000 MG in NA CHLORIDE 0.9% 50 ML IVPB SCH (08:15)
[2023-04-18] MEDS: MULTIVITAMINS,THERAPEUT 1 TAB PO SCH (08:16)
[2023-04-18] MEDS: AMLODIPINE 10 MG TAB PO SCH (08:16)
[2023-04-18] MEDS: ENOXAPARIN 40 MG/0.4 ML SQ SCH (08:16)
[2023-04-18] MEDS: SPIRONOLACTONE 25 MG TABLET PO SCH (08:17)
[2023-04-18] MEDS: PANTOPRAZOLE 40MG TABLET PO SCH (08:17)
[2023-04-18 08:18] VITALS: BP 158/81
[2023-04-18] MEDS: ASPIRIN 81 MG CHEWABLE TABLET PO SCH (08:18)
[2023-04-18] MEDS: HOME MED 1 EA UNK (Mecobalamin [B12 Active] 1,000 MCG Tab.Chew) PO SCH (08:18)
[2023-04-18 08:23] VITALS: TEMP 97.5
[2023-04-18] MEDS ORDERED: POTASSIUM CL SA 10 MEQ TAB PO ONE (09:00)
[2023-04-18] MEDS ORDERED: LOSARTAN POTASSIUM 50 MG TABLET PO SCH (09:00)
[2023-04-18 09:21] VITALS: O2SAT 92
--- NOTE | 2023-04-18 09:28 | P.PN ---
Date of Service: 04/18/23 Chief Complaint: Shortness of breath Subjective: Physical Examination Temp Pulse Resp BP Pulse Ox 97.5 F 100 H 16 158/81 H 94 04/18/23 08:00 04/18/23 08:17 04/18/23 08:31 04/18/23 08:17 04/18/23 08:31 General: Alert, In no apparent distress, Oriented x3 HEENT: Atraumatic, Normocephalic, PERRLA, Mucous membr. moist/pink Neck: Supple, JVD not distended Respiratory: Normal air movement, Diminished (left) Cardiovascular: No edema, Normal pulses Gastrointestinal: Normal bowel sounds, Soft and benign, Non-distended Musculoskeletal: No clubbing, No swelling Integumentary: No rashes, No breakdown Neurological: Normal gait, Normal speech, Normal strength at 5/5 x4 extr, Normal tone, Normal affect Studies Laboratory Data - Reviewed Microbiology Data - Reviewed Imagings Data: - XR Chest 04/16: "The lungs are mildly emphysematous. There is a small opacity in the right posterior gutter with trace pleural fluid which is probably small area of developing pneumonia. The heart is moderately enlarged." - CT Chest 04/16: "Patchy alveolar opacities in the posterior basal left lower lobe. Mild tree-in-bud opacities in the lower segments left upper lobe as well. No suspicious masses, although these findings could obscure small nodules. No pleural thickening or pleural effusion. No pneumothorax." Assessment and Plan Problem List Rheumatoid Arthritis Hypertension GERD Anemia Hyponatremia Pneumonia, Community Acquired Pneumonia, Community Acquired - Patient presented to ED with shortness of breath and cough x 1 week, sore throat, rhinorrhea and headache. Patient attended her granddaughter's graduation in [place] then reports developing these symptoms 1-2 days later. - CT Chest 04/16: "Patchy left basilar airspace opacities as above, raise concern for pneumonia." - Influenza A&B negative. Covid negative. - Started on Rocephin 04/17 Bacteremia - Blood cultures 04/16: Gram positive cocci in 1 out of 4 bottles - Repeat blood cultures 04/17: Pending - Started on Vancomycin 04/17 - TTE 04/17: "Normal left ventricular ejection fraction greater than 60%. Normal wall motion. Trace of mitral regurgitation. Mild tricuspid regurgitation. No clear vegetation is seen, ANNEL is recommended if clinically indicated" Leukocytosis (WBC 6.3 -> 11.5 - on 04/18) Afebrile Recommendations Continue current antibiotics for now. Awaiting repeat blood culture results. ID will follow up and adjust antibiotics as appropriate. Case discussed with Angelica Gonzalez
--- NOTE | 2023-04-18 13:34 | P.DS ---
Discharge Date: 04/18/23 Disposition: ROUTINE DISCHARGE Discharge Condition: GOOD Reason for Admission: Shortness of breath Brief History of Present Illness: Patient is an the 87-year-old female with a past medical history significant for rheumatoid arthritis, hypertension who presents with complaint of shortness of breath and cough that has been ongoing for the past 1 week. Patient reported that she started experiencing cough initially before she developed shortness of breath.. Patient reported associated signs and symptoms of sore throat, rhinorrhea, headache, dizziness and poor appetite. Patient denies any other signs and symptoms. Symptoms are aggravated or relieved by nothing. Patient decided to present to the hospital due to worsening symptoms. Hospital Course: Plan was to discharge patient home but her blood cultures were positive for coagulase negative staph. This was a contamination. We went ahead and discharge patient home on cefdinir and doxycycline. Patient is doing well and will follow-up as an outpatient with pulmonary. Patient will also see the PCP in 1 to 2 weeks. Vital Signs/Physical Exam: Temp Pulse Resp BP Pulse Ox 97.5 F 100 H 16 158/81 H 94 04/18/23 08:00 04/18/23 08:17 04/18/23 08:31 04/18/23 08:17 04/18/23 08:31 General: Alert, In no apparent distress, Oriented x3 Laboratory Data at Discharge: WBC 11.50 thou/uL (4.3-10.9) H 04/18/23 03:51 Hgb 11.1 g/dL (12.0-15.0) L 04/18/23 03:51 Hct 33.0 % (36.0-45.0) L 04/18/23 03:51 Plt Count 162 thou/uL (152-406) 04/18/23 03:51 PT 11.8 SECONDS (9.5-12.5) 04/16/23 10:17 INR 1.07 04/16/23 10:17 Sodium 134 mEq/L (136-145) L 04/18/23 03:51 Potassium 3.9 mEq/L (3.5-5.1) 04/18/23 03:51 BUN 16 mg/dL (7-18) 04/18/23 03:51 Creatinine 0.95 mg/dL (0.55-1.02) 04/18/23 03:51 Glucose 100 mg/dL (74-106) 04/18/23 03:51 Phosphorus 3.7 mg/dL (2.5-4.9) 04/17/23 04:37 Magnesium 2.2 mg/dL (1.6-2.4) 04/16/23 17:46 Total Bilirubin 0.4 mg/dL (0.2-1.0) 04/16/23 10:17 AST 23 U/L (15-37) 04/16/23 10:17 ALT 20 U/L (13-56) 04/16/23 10:17 Alkaline Phosphatase 49 U/L (45-117) 04/16/23 10:17 Home Medications: Amlodipine [Norvasc*] 1 tab PO DAILY 04/16/23 Famotidine 1 tab PO DAILY 04/16/23 Folic Acid/Vit B Complex and C [Dialyvite 800 Chewable Wafer] 1 tab PO DAILY 04/16/23 Hydrocodone Bit/Acetaminophen [[place] 10-325 Tablet] 1.5 tab PO Q3HP PRN 04/16/23 Losartan/Hydrochlorothiazide [Losartan-Hctz 100-25 mg Tab] 1 tab PO DAILY 04/16/23 Mecobalamin [B12 Active] 1 tab PO TID 04/16/23 Methotrexate [Methotrexate*] 5 tab PO SEECOM 04/16/23 Omeprazole 1 tab PO DAILY 04/16/23 Spironolactone [Aldactone] 1 tab PO DAILY 04/16/23 Aspirin Chewable [Aspirin Chewable*] 81 mg PO DAILY tab.chew 04/17/23 Cefdinir [Cefdinir*] 300 mg PO BID 7 Days #14 cap 04/17/23 Doxycycline Hyclate 100 mg PO BID 7 Days #14 tab 04/17/23 Hydrocodone 10/APAP 325 [[place] 10/325*] 1 tab PO BEDTIME 04/17/23 New Medications: Cefdinir [Cefdinir*] 300 mg PO BID 7 Days #14 cap Doxycycline Hyclate 100 mg PO BID 7 Days #14 tab Physician Discharge Instructions: 1. Please call and schedule a follow-up appointment with your PCP (Dr. Tee) in 3-5 days - Please have your PCP repeat your chest x-ray in 2-3 weeks to make sure your pneumonia has healed 2. Please call and schedule a follow-up appointment with Pulmonology (Dr. Muse) in 5-[address] Teague this weekend at [phone], if any questions regarding hospital stay Diet: AHA Activity: Ad nathaly Followup: Jone Muse MD [ACTIVE - CAN ADMIT] - (call to schedule an appointment 5-7 days) Rony Tee MD [Primary Care Provider] - (call to schedule an appointment in 3-5 days) Time spent managing pt's care (in minutes): 35
[2023-04-18] MEDS ORDERED: VANCOMYCIN 1 GM in NA CHLORIDE 0.9% 250 ML IVPB SCH (23:00)
== END 2023-04-18 10:30 | disposition home or self-care (01) | DRG 194 ==
LOC: ER 09:27 → INTOOBSV 11:44 → ERHOLD 11:44 → OBSVTOIN 11:44 → 2ND 14:07
PROVIDERS: ADMIT Internal Medicine; ATTEND Hospitalist
DX: J18.9 Pneumonia, unspecified organism (principal); E87.1 Hypo-osmolality and hyponatremia; J44.0 Chronic obstructive pulmonary disease with (acute) lower respiratory infection; M06.9 Rheumatoid arthritis, unspecified; I10 Essential (primary) hypertension; D63.8 Anemia in other chronic diseases classified elsewhere; K21.9 Gastro-esophageal reflux disease without esophagitis; R09.02 Hypoxemia; R79.89 Other specified abnormal findings of blood chemistry; Z79.82 Long term (current) use of aspirin; Z90.49 Acquired absence of other specified parts of digestive tract; Z79.899 Other long term (current) drug therapy; Z87.891 Personal history of nicotine dependence
CPT/HCPCS: 36415; 71046; 71250; 80048; 80076; 83605; 83735; 83880; 84100; 84145; 84484; 85025; 85610; 87040; 87205; 87804; 93005; 93306; 94640; 96365; 96367; 96372; 96375; 99285; J0696; J1650; J2930; J3475; J7030; J7040; J7050; J7512; J7613; J7614; J7644; J8610; U0003

== ENCOUNTER 2024-05-26 15:44 | Emergency (ER) | payer OTHER, BC ==
[2024-05-26 16:30] LABS: Absolute Basophils 0.1 K/uL (0-0.5); Absolute Eosinophils 0.1 K/uL (0-0.5); Absolute Lymphocytes (CBC) 2.8 K/uL (0.7-4.9); Absolute Neutrophil 10.6 K/uL (1.8-8.0); Basophils % 0.8 % (0-1.3); Eosinophils % 0.8 % (0-4.4); Lymphocytes % 19.5 % (15.3-44.8); MCH 31.5 pg (27.0-35.0); MCHC 33.3 g/dL (32.0-36.0); MCV 94.7 fL (80-100); Monocytes % 6.6 % (3.3-12.3); Neutrophils % 72.3 % (41.7-73.7); Platelets 211 thou/uL (152-406); Red Cell Distribution Width 14.6 % (12.1-15.2)
[2024-05-26 16:47] LABS: Albumin 3.7 g/dL (3.4-5.0); Albumin/Globulin Ratio 0.9 (1.1-1.8); Anion Gap 9.3 mEq/L (5.0-15.0); Bilirubin Total 0.7 mg/dL (0.2-1.0); Potassium 3.3 mEq/L (3.5-5.1); Protein, Total 7.7 g/dL (6.4-8.2)
--- NOTE | 2024-05-26 17:51 | RAD REPORT ---
EXAM DESCRIPTION: CTAbdomen Pelvis W Contrast - 05/26/2024 5:26 pm CLINICAL HISTORY: CONSTIPATION COMPARISON: Abdomen Pelvis W Contrast dated 09/02/2018 TECHNIQUE: CT of the abdomen and pelvis was performed. All CT scans are performed using dose optimization technique as appropriate and may include automated exposure control or mA/KV adjustment according to patient size. FINDINGS: Lower chest: No acute abnormality. Small hiatal hernia. Aortic valve calcifications. Coron spencer calcifications. Liver: No acute abnormality or suspicious lesions. Biliary: Cholecystectomy. Extrahepatic biliary duct dilatation is chronic and may be secondary to the postcholecystectomy state. Stomach: No significant focal abnormality. Duodenum: No significant focal abnormality. Pancreas: Pancreatic atrophy. Spleen: No significant abnormality. Adrenal: No suspicious lesions. Kidney/ureter: No hydronephrosis. Renal cortical thinning. Stone versus vascular calcification at th e right renal pelvis. Too small to characterize and/or benign appearing renal lesions are noted. Retroperitoneum: No retroperitoneal adenopathy. Vascular: No aneurysm. Atherosclerosis Bowel: Pelvic floor laxity. No bowel obstruction. Some liquid colonic contents are noted but the over all volume of formed stool is low. Eccentric thickening at the lower third of the rectum.. Peritoneum: No ascites or free air. Bladder: Grossly unremarkable. Reproductive: No adnexal masses. Bones: No acute fracture. Grade 2 anterolisthesis of L4 on L5. Multilevel degenerative changes are pr esent in the spine. Other: n/a IMPRESSION: No acute intra-abdominal or pelvic finding. With regards to constipation, the overall vo lume of formed stool is low. No bowel obstruction identified. Pelvic floor laxity is identified with eccentric thickening at the lower third of the rectum. Consider colonoscopy to exclude an underlying rectal mass. Other incidental findings as noted above.
[2024-05-26] MEDS ORDERED: NA CHLORIDE 0.9% 500 ML ONE (18:03)
--- NOTE | 2024-05-26 18:28 | ER ---
Nurse's Notes [facility] Name: Isa Hawkins Age: 88 yrs Sex: Female : 1935 Arrival Date: 05/26/2024 Time: 15:44 Bed 26 Private MD: Diagnosis: Abdominal pain, unspecified;Thickening of lower rectal wall Presentation: 05/26 16:34 Chief complaint: Patient states: Pt c/o constipation x several months. Pt states no tl4 relief with OTC medications. Pt denies N/V, fever/chills. Coronavirus screen: At this time, the client does not indicate any symptoms associated with coronavirus-19. Ebola Screen: No symptoms or risks identified at this time. Initial Sepsis Screen: Does the patient meet any 2 criteria? No. Patient's initial sepsis screen is negative. Does the patient have a suspected source of infection? No. Patient's initial sepsis screen is negative. Risk Assessment: Do you want to hurt yourself or someone else? Patient reports no desire to harm self or others. Onset of symptoms is unknown. 16:34 Method Of Arrival: Ambulatory tl4 16:34 Acuity: VALENTINA 3 tl4 Triage Assessment: 16:36 General: Appears uncomfortable, Behavior is calm, cooperative. Pain: Denies pain. EENT: tl4 No signs and/or symptoms were reported regarding the EENT system. Neuro: Level of Consciousness is awake, alert, obeys commands, Oriented to person, place, time, situation, Moves all extremities. Full function Gait is steady, Speech is normal. Cardiovascular: Capillary refill < 3 seconds Patient's skin is warm and dry. Respiratory: Airway is patent Respiratory effort is even, unlabored, Respiratory pattern is regular, symmetrical. GI: Reports constipation. : No signs and/or symptoms were reported regarding the genitourinary system. Derm: No signs and/or symptoms reported regarding the dermatologic system. Musculoskeletal: No signs and/or symptoms reported regarding the musculoskeletal system. Historical: - Allergies: 16:36 No Known Allergies; tl4 - PMHx: 16:36 Hypertensive disorder; Rheumatoid Arthritis; tl4 - Immunization history:: Adult Immunizations unknown. - Infectious Disease History:: Denies. - Social history:: Smoking status: Patient denies any tobacco usage or history of. - Family history:: not pertinent. - Hospitalizations: : No recent hospitalization is reported. Screenin:07 [facility] ED Fall Risk Assessment (Adult) History of falling in the last 3 months, ld1 including since admission No falls in past 3 months (0 pts) Confusion or Disorientation No (0 pts) Intoxicated or Sedated No (0 pts) Impaired Gait No (0 pts) Mobility Assist Device Used No (0 pt) Altered Elimination No (0 pt) Score/Fall Risk Level 0 - 2 = Low Risk Oriented to surroundings, Maintained a safe environment, Educated pt \T\ family on fall prevention, incl call for assistance when getting out of bed, Assessed \T\ reinforced patient's understanding of fall precautions, Provided non-skid footwear, Hourly rounding (assess needs \T\ fall precautionary measures) done, Used ambulatory aids as needed (educated on \T\ assisted with), Used gait belt as appropriate. Abuse screen: Denies threats or abuse. Denies injuries from another. Nutritional screening: No deficits noted. Tuberculosis screening: No symptoms or risk factors identified. Assessment: 18:07 General: Appears in no apparent distress. comfortable, Behavior is calm, cooperative, ld1 appropriate for age. Pain: Denies pain. Neuro: Level of Consciousness is awake, alert, obeys commands, Oriented to person, place, time, situation. Cardiovascular: Capillary refill < 3 seconds Patient's skin is warm and dry. Respiratory: Airway is patent Respiratory effort is even, unlabored. GI: Abdomen is round non-distended, Bowel sounds present X 4 quads. Abd is soft Abd is non tender X 4 quads. : No signs and/or symptoms were reported regarding the genitourinary system. EENT: No signs and/or symptoms were reported regarding the EENT system. Derm: No signs and/or symptoms reported regarding the dermatologic system. Musculoskeletal: No signs and/or symptoms reported regarding the musculoskeletal system. 18:39 Reassessment: Waiting on fluids to finish. ld1 Vital Signs: 16:34 BP 159 / 66; Pulse 104; Resp 18; Temp 97.9(TE); Pulse Ox 96% on R/A; Weight 56.7 kg; tl4 Height 5 ft. 0 in. ; Pain 0/10; 18:07 BP 146 / 70; Pulse 89; Resp 18; Pulse Ox 97% on R/A; ld1 16:34 Body Mass Index 24.41 (56.70 kg, 152.4 cm) tl4 16:34 Pain Scale: Adult tl4 ED Course: 15:47 Patient arrived in ED. ra3 15:50 Hieu Ruiz MD is Attending Physician. rn 16:10 Missed attempt(s): 24 gauge in right antecubital area. Bleeding controlled, band aid bc6 applied, catheter tip intact. 16:22 CBC with Diff Sent. bc6 16:22 CMP Sent. bc6 16:22 Lipase Sent. bc6 16:22 Initial lab(s) drawn, by ny, sent to lab. Inserted saline lock: 24 gauge in right bc6 antecubital area, using aseptic technique. Blood collected. 16:36 Triage completed. tl4 16:38 Arm band placed on right wrist. tl4 17:28 CT Abd/Pelvis - IV Contrast Only In Process Unspecified. EDMS 18:02 Kassie Patel, RN is Primary Nurse. iw 18:02 Primary Nurse role handed off by Kassie Patel RN ld1 18:02 Sasha Gruber, DIXON is Primary Nurse. ld1 18:07 No provider procedures requiring assistance completed. ld1 18:07 Patient has correct armband on for positive identification. Placed in gown. Bed in low ld1 position. Call light in reach. Side rails up X2. night monitor on. Pulse ox on. NIBP on. Door closed. Noise minimized. Warm blanket given. 18:46 IV discontinued, intact, bleeding controlled, No redness/swelling at site. ld1 Administered Medications: 18:07 Drug: NS 0.9% IV 500 ml IV at bolus once Route: IV; Rate: bolus; Site: right ld1 antecubital; 18:39 Drug: Ciprofloxacin PO 500 mg PO once Route: PO; ld1 18:39 Drug: metroNIDAZOLE PO 500 mg PO once Route: PO; ld1 Medication: 18:07 VIS not applicable for this client. ld1 Outcome: 18:28 Discharge ordered by . rn 18:46 Discharged to home ambulatory, with family, ld1 18:46 Condition: stable 18:46 Discharge instructions given to patient, Instructed on discharge instructions, follow up and referral plans. medication usage, Demonstrated understanding of instructions, follow-up care, medications, Prescriptions given X 2, 18:46 Patient left the ED. ld1 Signatures: Dispatcher [employer] Kassie Cleary, RN RN Hieu Posadas MD MD rn Sims, Lauren, RN RN ld1 Princess Contreras 6 David Hampton RN RN tl4 Tricia Lomeli 3
--- NOTE | 2024-05-26 18:28 | EDPHYS ---
Physician Documentation [facility] Name: Isa Hawkins Age: 88 yrs Sex: Female : 1935 Arrival Date: 05/26/2024 Time: 15:44 Bed 26 Private MD: ED Physician Hieu Ruiz HPI: 05/26 17:21 This 88 yrs old Female presents to ER via Ambulatory with complaints of Constipation. rn 17:21 The patient presents with abdominal pain in the left lower quadrant. rn 17:21 Onset: The symptoms/episode began/occurred 1 week(s) ago. The symptoms do not radiate. rn Modifying factors: The symptoms are alleviated by nothing, the symptoms are aggravated by nothing. Severity of pain: At its worst the pain was mild in the emergency department the pain is unchanged. The patient has not experienced similar symptoms in the past. The patient has not recently seen a physician. Patient reports she is concerned that she might have a fecal impaction. Has had trouble with constipation in the past, takes pain medication and laxatives are not helping at this time. Reports associated left lower quadrant abdominal pain without blood in stool or vomiting. Does not feel ill. Took magnesium citrate this morning and had some bowel movement but mainly liquid stool.. Historical: - Allergies: 16:36 No Known Allergies; tl4 - PMHx: 16:36 Hypertensive disorder; Rheumatoid Arthritis; tl4 - Immunization history:: Adult Immunizations unknown. - Infectious Disease History:: Denies. - Social history:: Smoking status: Patient denies any tobacco usage or history of. - Family history:: not pertinent. - Hospitalizations: : No recent hospitalization is reported. ROS: 17:21 Constitutional: Negative for fever, chills, and weight loss, Cardiovascular: Negative rn for chest pain, palpitations, and edema, Respiratory: Negative for shortness of breath, cough, wheezing, and pleuritic chest pain, Abdomen/GI: Positive for left lower quadrant abdominal pain MS/Extremity: Negative for injury and deformity, Skin: Negative for injury, rash, and discoloration, Neuro: Negative for headache, weakness, numbness, tingling, and seizure, Exam: 17:21 Constitutional: This is a well developed, well nourished patient who is awake, alert, rn and in no acute distress. ENT: Dry mucous membranes Cardiovascular: Tachycardic, regular. No pulse deficits. Respiratory: No increased work of breathing, no retractions or nasal flaring. Abdomen/GI: Soft, mild left lower quadrant tenderness without guarding or rebound MS/ Extremity: Pulses equal, no cyanosis. Neuro: Awake and alert, GCS 15 Vital Signs: 16:34 BP 159 / 66; Pulse 104; Resp 18; Temp 97.9(TE); Pulse Ox 96% on R/A; Weight 56.7 kg; tl4 Height 5 ft. 0 in. ; Pain 0/10; 18:07 BP 146 / 70; Pulse 89; Resp 18; Pulse Ox 97% on R/A; ld1 16:34 Body Mass Index 24.41 (56.70 kg, 152.4 cm) tl4 16:34 Pain Scale: Adult tl4 MDM: 15:50 Patient medically screened. rn 18:25 Differential diagnosis: bowel obstruction, non-specific abd pain, Diverticulitis, rn proctitis, rectal cancer, impaction, constipation. Data reviewed: vital signs, nurses notes, lab test result(s), radiologic studies, CT scan, and as a result, I will discharge patient. Counseling: I had a detailed discussion with the patient and/or guardian regarding the historical points, exam findings, and any diagnostic results supporting the discharge/admit diagnosis, lab results, radiology results, the need for outpatient follow up, to return to the emergency department if symptoms worsen or persist or if there are any questions or concerns that arise at home. ED course: CT imaging negative for fecal impaction. Does show thickening of the lower third of the rectum, given elevated white blood cell count and symptoms of constipation without large volume of stool will send home with antibiotics and recommend she gets outpatient colonoscopy. Patient states sees Dr. Garay already for esophageal problems, will make an appointment for colonoscopy to rule out rectal mass/cancer.. 05/26 15:51 Order name: CBC with Diff; Complete Time: 17:06 rn 05/26 15:51 Order name: CMP; Complete Time: 17:06 rn 05/26 15:51 Order name: Lipase; Complete Time: 17: rn 05/26 15:51 Order name: CT Abd/Pelvis - IV Contrast Only; Complete Time: 18:04 rn 05/26 15:51 Order name: IV Saline Lock; Complete Time: 16:22 rn 05/26 15:51 Order name: Labs collected and sent; Complete Time: 16:22 rn Administered Medications: 18:07 Drug: NS 0.9% IV 500 ml IV at bolus once Route: IV; Rate: bolus; Site: right ld1 antecubital; 18:39 Drug: Ciprofloxacin PO 500 mg PO once Route: PO; ld1 18:39 Drug: metroNIDAZOLE PO 500 mg PO once Route: PO; ld1 Disposition Summary: 05/26/24 18:28 Discharge Ordered Notes: Location: Home rn Problem: new rn Symptoms: have improved rn Condition: Stable rn Diagnosis - Abdominal pain, unspecified rn - Thickening of lower rectal wall rn Followup: rn - With: Private Physician - When: As needed - Reason: Recheck today's complaints, Re-evaluation by your physician Discharge Instructions: - Discharge Summary Sheet rn - Abdominal Pain, Adult rn - Colonoscopy, Adult rn Forms: - Medication Reconciliation Form rn - Antibiotic sheet turner - Prescription Opioid Use rn - Patient Portal Instructions rn - Leadership Thank You Letter rn Prescriptions: - Flagyl 500 mg Oral Tablet - take 1 tablet ORAL route every 12 hours for 7 days; 14 tablet; Refills: 0, rn Product Selection Permitted - Cipro 500 mg Oral Tablet - take 1 tablet ORAL route every 12 hours for 7 days; 14 tablet; Refills: 0, rn Product Selection Permitted Signatures: Dispatcher [employer] EDHieu Mullins MD MD rn Sims, Lauren RN RN ld1 David Hampton RN RN tl4 Corrections: (The following items were deleted from the chart) 15:51 15:51 CBC+H.LAB.BRZ ordered. EDMS EDMS 15:51 15:51 COMPREHENSIVE METABOLIC PANEL+C.LAB.BRZ ordered. EDMS EDMS 15:51 15:51 LIPASE+C.LAB.BRZ ordered. EDMS EDMS
[2024-05-26] MEDS ORDERED: metroNIDAZOLE 500 MG TABLET ONE (18:31)
[2024-05-26] MEDS ORDERED: CIPROFLOXACIN HCL 500 MG TAB ONE (18:31)
[2024-05-26 19:37] VITALS: BP 146/70; TEMP 97.9; O2SAT 97
== END 2024-05-26 18:46 | disposition home or self-care (01) ==
LOC: ER 15:44
DX: R10.32 Left lower quadrant pain (principal); K63.89 Other specified diseases of intestine
CPT/HCPCS: 85025; 36415; 83690; 80053; 74177; Q9967; J7040; 99285